=== PATIENT | male | born 1985 ===

== ENCOUNTER 2019-12-27 11:00 | Outpatient (REF) | payer BC, SELFPAY | END 2019-12-27 11:01 | disposition home or self-care (01) | LOC: HO.LAB 11:00 | PROVIDERS: Visit Provider Internal Medicine | DX: Z20.828 Contact with and (suspected) exposure to other viral communicable diseases (principal) | CPT/HCPCS: C9803; U0003 ==

== ENCOUNTER 2020-01-16 10:20 | Emergency (ER) | payer BC, SELFPAY ==
[2020-01-16 10:49] VITALS: BP 140/78; PULSE 67; RESP 16; TEMP 36.7; O2SAT 97; BMI 26.6
--- NOTE | 2020-01-16 11:05 | ED.EYEPROB ---
HPI - Eye Problem General Chief complaint: Eye Problems Stated complaint: STY LEFT EYE Time Seen by Provider: 01/16/20 11:05 Source: patient Mode of arrival: ambulatory Limitations: no limitations History of Present Illness MD chief complaint: eye pain and eye redness Onset (ago): day(s) (yesterday) Onset description: gradual Duration: constant Location: left eye Eye Symptoms: redness and other (stye with swelling) Place: home Mechanism: none Severity: mild If Pain, Quality: aching Associated symptoms: none Treatments Prior to Arrival: none Related Data Previous Rx's Medication Instructions Recorded cephalexin 500 mg PO TID 7 Days #21 cap 01/16/20 erythromycin 0.5 inch OPHTHALMIC (EYE) BID 7 01/16/20 Days #3.5 g Allergies Allergy/AdvReac Type Severity Reaction Status Date / Time mushroom Allergy Unknown SWELLING Verified 01/16/20 10:51 Review of Systems Review of Systems: Constitutional : No Fever, No Chills ENT/Mouth : No sore throat, No Rhinorrhea Eyes: No Eye Pain, pos Swelling, pos Redness Cardiovascular : No Chest Pain, No SOB Respiratory : No Cough, No Sputum Gastrointestinal : No Nausea, No Vomiting, No Diarrhea, No abdominal Pain Genitourinary : No Dysuria, No Hematuria Musculoskeletal : No joint pain, No Myalgias, No Joint Swelling Skin : No Skin Lesions, positive skin rash PMFSH Past Medical History Attestation statement: The following information was validated with the patient. Medical History No active medical problems Social History Social History (Updated 01/16/20 @ 11:11 by Bing Patterson DO) Smoking Status: Current every day smoker Advance Directives: No Advance Directives Information Provided: Yes Physical Exam Vital Signs: Vital Signs: Last Vital Signs Temp 98.0 F 01/16/20 10:49 Pulse 67 01/16/20 10:49 Resp 16 01/16/20 10:49 BP 140/78 H 01/16/20 10:49 Pulse Ox 97 01/16/20 10:49 Body Mass Index 26.6 Appearance: Alert. Oriented X3. No acute distress. Eyes: Pupils equal, round and reactive to light. L eye small stye lower lid, mild periorbital swelling and erythema no pain with EOM ENT: Pharynx normal. Neck: Normal inspection. Neck supple. CVS: Normal heart rate and rhythm. Pulses normal. Respiratory: No respiratory distress. Breath sounds normal. Abdomen: Soft and nontender. Skin: Skin warm and dry. Normal skin color. Normal skin turgor. Extremities: No lower extremity edema. No calf ttp Neuro: Oriented X 3. No motor deficit. No sensory deficit. MDM - Eye Problem MDM Narrative Medical decision making narrative: 34 yo male with no active medical problems here with L eye stye no overt abscess, no vision changes, mild erythema/swelling around orbit suggestive of cellulitis, does not wear contacts will start on eye ointment, warm compresses and oral antibiotics for cellulitis Discharge Plan Discharge Clinical Impression: Periorbital cellulitis Qualifiers: Laterality: left Qualified Code(s): L03.213 - Periorbital cellulitis Stye Qualifiers: Laterality: left Eyelid: lower Qualified Code(s): H00.015 - Hordeolum externum left lower eyelid Patient Disposition: Home, Self-Care Instructions: [place] (ED), Periorbital Cellulitis in Adults (ED) Additional Instructions: return to ED for any worsening symptoms or concerns Prescriptions: New erythromycin 5 mg/gram (0.5 %) ointment 0.5 inch ophthalmic (eye) BID 7 Days Qty: 3.5 RF: 0 cephalexin 500 mg capsule 500 mg PO TID 7 Days Qty: 21 RF: 0 Stand Alone Forms: Work/School Release
== END 2020-01-16 11:21 | disposition home or self-care (01) ==
PROVIDERS: Emergency Provider Emergency Medicine
DX: L03.213 Periorbital cellulitis (principal); H00.015 Hordeolum externum left lower eyelid
CPT/HCPCS: 99283

== ENCOUNTER 2020-04-09 06:10 | Emergency (ER) | payer BC, SELFPAY ==
[2020-04-09 06:18] VITALS: BP 132/91; PULSE 94; RESP 18; TEMP 36.7; O2SAT 99; BMI 26.6
--- NOTE | 2020-04-09 06:37 | ED_ITS ---
HPI - Skin/Abscess/Foreign Bdy General Chief complaint: Eye Problems Stated complaint: Eye swelling/?Abscess Time Seen by Provider: 04/09/20 06:22 Source: patient Mode of arrival: ambulatory History of Present Illness HPI narrative: This is a 34-year-old male who comes in with was started off looking like a small pimple at the right far lateral aspect of his right orbit approximately 2 days ago and now increasing and swelling with a swelling affecting both the upper and lower eyelid without changes in visual acuity/blurry vision/double vision. In addition, patient denies any fevers, chills and states that he has been trying warm moist compresses without success. Related Data Previous Rx's Medication Instructions Recorded cephalexin 500 mg PO TID 7 Days #21 cap 01/16/20 erythromycin 0.5 inch OPHTHALMIC (EYE) BID 7 01/16/20 Days #3.5 g amoxicillin-pot clavulanate 1 tab PO Q12H 5 Days #10 tab 04/09/20 [Augmentin] Allergies Allergy/AdvReac Type Severity Reaction Status Date / Time mushroom Allergy Unknown SWELLING Verified 01/16/20 10:51 Review of Systems Review of Systems: Pertinent positives and negatives as stated in HPI 10 point review of systems is otherwise negative. PMFSH Past Medical History Source: nursing notes reviewed Medical History No active medical problems Social History Social History Smoking Status: Smoker, status unknown Advance Directives: No Physical Exam Vital Signs: Vital Signs: Last Vital Signs Temp 98.1 F 04/09/20 06:18 Pulse 94 04/09/20 06:18 Resp 18 04/09/20 06:18 BP 132/91 H 04/09/20 06:18 Pulse Ox 99 04/09/20 06:18 Body Mass Index 26.6 VITAL SIGNS: Reviewed. GENERAL: Well developed, well nourished, in no acute distress. HEAD: Normocephalic/atraumatic, EYES: PERRLA, EOMI intact without pain, no nystagmus, small erythematous indurated area at the lateral right orbit without pustule head examined further with bedside ultrasound and no discrete collection appreciated. EARS: Ext canals without abnormality NOSE: Nares patent bilateral OROPHARYNX: no oral lesions noted, posterior pharynx clear NECK: Supple, no adenopathy LUNGS: Normal breath sounds. No adventitious sounds or accessory muscle use. SpO2<99> CARDIOVASCULAR: Regular rate and rhythm without noted murmurs ABDOMEN: Soft, non-tender, non-distended with bowel sounds. NEUROLOGIC: Alert and oriented x 4. Course Course Course Narrative: This is a 34-year-old male with history and clinical presentation consistent with redness, swelling at right lateral orbit and no identifiable collection to drain. This was discussed with the patient at bedside and he acknowledged understanding and will continue with the hot moist compresses as well as being started on antibiotics. He received the initial dose here in the emergency room and then the remaining course was sent to the pharmacy. Discharge Plan Discharge Clinical Impression: Abscess Patient Disposition: Home, Self-Care Instructions: Abscess (ED) Additional Instructions: 1. Continue with hot moist compresses to the area for the next 24-48 hours. 2. Complete the entire course of antibiotics whether not you are able to express pus after 24 hours. 3. Please follow up with the primary care provider in 2-3 days for re- evaluation. 4. Recommend using [id number] Tylenol/ibuprofen for pain control. Do not hesitate to return to the emergency room for any acute worsening of her symptoms. Prescriptions: New amoxicillin-pot clavulanate [Augmentin] 875-125 mg tablet 1 tab PO Q12H 5 Days Qty: 10 RF: 0 No Action erythromycin 5 mg/gram (0.5 %) ointment 0.5 inch ophthalmic (eye) BID 7 Days Qty: 3.5 RF: 0 cephalexin 500 mg capsule 500 mg PO TID 7 Days Qty: 21 RF: 0 Referrals: Physician,None [Primary Care Provider] - 2 days Discharge Date/Time: 04/09/20 06:49
[2020-04-09] MEDS: Amoxicillin/Potassium Clav 875 MG TABLET PO (06:44)
== END 2020-04-09 06:49 | disposition home or self-care (01) ==
LOC: HO.ED 06:41
PROVIDERS: Emergency Provider Student in an Organized Health Care Education/Training Program
DX: H44.001 Unspecified purulent endophthalmitis, right eye (principal); Z79.899 Other long term (current) drug therapy
CPT/HCPCS: 99283; 99284

== ENCOUNTER 2020-08-21 11:01 | Emergency (ER) | payer BC, SELFPAY ==
--- NOTE | ~2020-08-21 | XR_ITS ---
EXAMINATION: XR CHEST CLINICAL INFORMATION: Cough for 3 weeks. COMPARISON: None. TECHNIQUE: 2 views of the chest were obtained. FINDINGS: Minimal left basilar atelectasis. No large, confluent airspace consolidation. No pleural effusion or pneumothorax. Unremarkable cardiomediastinal silhouette. No acute osseous abnormality. XR/XR chest 2V IMPRESSION: Minimal left basilar atelectasis.
[2020-08-21 11:03] VITALS: BP 118/66; PULSE 99; RESP 16; TEMP 36.7; O2SAT 96; BMI 22.1
--- NOTE | 2020-08-21 12:19 | ED_ITS ---
HPI - General Adult General Chief complaint: Upper Respiratory Symptoms Stated complaint: fever headache Time Seen by Provider: 08/21/20 12:19 Source: patient Limitations: no limitations History of Present Illness HPI narrative: Patient presents with about a week and half to 2 weeks history of increasing cough nasal congestion slight sore throat and left-sided ear pain. Patient denies any sick contacts. Positive history of tobacco use no past medical history and takes no current medications. Patient has not been vaccinated for COVID-19 as no past history of COVID-19. Symptoms are moderate. Denies any left ear discharge. Cough is productive for green yellow sputum. Related Data Previous Rx's Medication Instructions Recorded cephalexin 500 mg PO TID 7 Days #21 cap 01/16/20 erythromycin 0.5 inch OPHTHALMIC (EYE) BID 7 01/16/20 Days #3.5 g amoxicillin-pot clavulanate 1 tab PO Q12H 5 Days #10 tab 04/09/20 [Augmentin] amoxicillin 500 mg PO TID 10 Days #30 cap 08/21/20 Allergies Allergy/AdvReac Type Severity Reaction Status Date / Time mushroom Allergy Unknown SWELLING Verified 01/16/20 10:51 Review of Systems Constitutional: Constitutional: Denies chills, Denies fatigue, Denies fever(s), Denies headache(s) and Denies weakness Eyes: Eyes: Denies blurry vision and Denies diplopia ENT: Denies facial pain, Denies headache(s) and Reports sore throat (Left- sided ear pain) Cardiovascular: Cardiovascular: Denies chest pain and Denies dyspnea Respiratory: Respiratory: Denies dyspnea Gastrointestinal: Gastrointestinal: Denies diarrhea, Denies nausea and Denies vomiting Musculoskeletal: Musculoskeletal: Reports no additional musculoskeletal complaints Neurologic: Denies headache(s) and Denies weakness Psychiatric: Psychiatric: Reports no additional psychiatric complaints Endocrine: Endocrine: Denies fatigue Allergic/Immunologic: Allergic/Immunologic: Reports no additional allergic/immunologic complaints [facility] Past Medical History Attestation statement: The following information was validated with the patient. Medical History No active medical problems Social History Social History Advance Directives: No Advance Directives Information Provided: No Physical Exam Vital Signs: Vital Signs: Last Vital Signs Temp 98.1 F 08/21/20 11:03 Pulse 99 08/21/20 11:03 Resp 16 08/21/20 11:03 BP 118/66 08/21/20 11:03 Pulse Ox 96 08/21/20 11:03 Body Mass Index 22.1 vital signs have been reviewed as normal and appeared to be correct. Blood pressure normal. Heart rate normal. Respiration rate normal. Temperature normal. Oxygen saturation normal. Appearance: Alert. Oriented X3. No acute distress. Head: Normal external exam. Normocephalic. Atraumatic. Eyes: PERRLA. EOMI. Conjunctiva and sclera normal. Eyelids normal. ENT: Throat is clear no evidence of peritonsillar abscess left ear TM is dull positive erythema Neck: Soft full range of motion CVS: Heart regular rate and rhythm no murmurs and rubs Respiratory: Breath sounds are clear to auscultation bilaterally. No accessory muscle use noted. Back: No CVA tenderness. Full range of motion noted. Skin: Skin warm and dry. Normal skin color. Extremities: No lower extremity edema. Extremities exhibit normal range of motion. Extremities nontender. Neuro: Oriented X 3. No motor deficit. No sensory deficit. Reflexes normal. Course Course Course Narrative: URI COVID-19 Pneumonia Acute bronchitis Left otitis media Pharyngitis Chest x-ray swab is pending patient has clinical signs of left otitis media at this time Frontal swabs are negative chest x-ray is normal Medical Decision Making Lab Data Labs: Lab Results 08/21/20 Range/Units 12:13 Coronavirus (PCR) NEGATIVE (Negative) Influenza Type A (PCR) NEGATIVE (Negative) Influenza Type B (PCR) NEGATIVE (Negative) RSV RNA Qual (PCR) NEGATIVE (Negative) Imaging Data Chest x-ray: Radiologist's impression: [address] [id number] ReportSigned Patient: Albino MastersMR#: [id number]: [id number]:[id number]/Sex: 35 / MADM Date: 08/21/20Loc: EDAttending Dr: Ordering Physician: Diallo Tate Date of Service: 08/21/20 Procedure(s): XR chest 2V Accession Number(s): [id number] cc: Diallo Tate ~ EXAMINATION: XR CHEST CLINICAL INFORMATION: Cough for 3 weeks. COMPARISON: None. TECHNIQUE: 2 views of the chest were obtained. FINDINGS: Minimal left basilar atelectasis. No large, confluent airspace consolidation. No pleural effusion or pneumothorax. Unremarkable cardiomediastinal silhouette. No acute osseous abnormality. XR/XR chest 2V IMPRESSION: Minimal left basilar atelectasis. Dictated By:COLLIN CARMEN MDSigned By:<Electronically signed by COLLIN CARMEN MD in OV>08/21/20 1215 DD/ 1205TD/TT: Customer Service Sales Associate: Discharge Plan Discharge Clinical Impression: Otitis media Patient Disposition: Home, Self-Care Instructions: Ear Infection (ED) Additional Instructions: COVID-19 swab and flu swab were negative You have clinical signs of a left ear infection will treat with antibiotics as this time Prescriptions: New amoxicillin 500 mg capsule 500 mg PO TID 10 Days Qty: 30 RF: 0 No Action erythromycin 5 mg/gram (0.5 %) ointment 0.5 inch ophthalmic (eye) BID 7 Days Qty: 3.5 RF: 0 cephalexin 500 mg capsule 500 mg PO TID 7 Days Qty: 21 RF: 0 amoxicillin-pot clavulanate [Augmentin] 875-125 mg tablet 1 tab PO Q12H 5 Days Qty: 10 RF: 0
[2020-08-21 12:55] LABS: Influenza A PCR NEGATIVE (Negative); Influenza B PCR NEGATIVE (Negative); Resp Syncy Virus RNA Qual PCR NEGATIVE (Negative); SARS COV2 PCR INHOUSE NEGATIVE (Negative)
[2020-08-21 13:14] VITALS: O2SAT 98
== END 2020-08-21 13:23 | disposition home or self-care (01) ==
PROVIDERS: Physician Assistant; Emergency Provider Emergency Medicine
DX: H66.92 Otitis media, unspecified, left ear (principal); R05 Cough; Z20.822 Contact with and (suspected) exposure to COVID-19
CPT/HCPCS: 0241U; 36415; 71046; 99283; 99284

== ENCOUNTER 2020-08-29 11:13 | Emergency (ER) | payer BC, SELFPAY ==
[2020-08-29 12:15] VITALS: BP 123/83; PULSE 92; RESP 16; TEMP 36.8; O2SAT 97; BMI 23.6
--- NOTE | 2020-08-29 13:14 | ED.URI ---
HPI - URI/Sore Throat General Chief Complaint: Upper Respiratory Symptoms Stated Complaint: SORE THROAT Source: patient Mode of arrival: ambulatory Limitations: no limitations History of Present Illness HPI Narrative: Patient return to the ED for continued coughing and sore throat. Patient states sore throat and coughing for 3 weeks. Patient was seen here last week 2 weeks into symptoms and had a negative chest x-ray and negative COVID swab. Patient denies any chest pain or shortness of breath. Patient denies any swelling of lower extremity or coughing up blood. Patient admits seasonal allergies MD elicited complaint: cough and sore throat Related Data Previous Rx's Medication Instructions Recorded cephalexin 500 mg PO TID 7 Days #21 cap 01/16/20 erythromycin 0.5 inch OPHTHALMIC (EYE) BID 7 01/16/20 Days #3.5 g amoxicillin-pot clavulanate 1 tab PO Q12H 5 Days #10 tab 04/09/20 [Augmentin] amoxicillin 500 mg PO TID 10 Days #30 cap 08/21/20 benzonatate [Tessalon Perles] 100 mg PO TID 5 Days #15 cap 08/29/20 cetirizine 10 mg PO DAILY PRN #10 cap 08/29/20 Allergies Allergy/AdvReac Type Severity Reaction Status Date / Time mushroom Allergy Unknown SWELLING Verified 01/16/20 10:51 Review of Systems Review of Systems: Yes all other systems are reviewed and are negative Constitutional: Constitutional: Reports as per HPI and Reports no additional constitutional complaints Eyes: Eyes: Reports as per HPI and Reports no additional eye complaints ENT: Reports system reviewed and no additional complaints, except as documented, Reports as per HPI and Reports sore throat Cardiovascular: Cardiovascular: Reports as per HPI and Reports no additional cardiovascular complaints Respiratory: Respiratory: Reports as per HPI, Reports no additional respiratory complaints and Reports cough Gastrointestinal: Gastrointestinal: Reports as per HPI and Reports no additional gastrointestinal complaints Genitourinary: Genitourinary: Reports no additional male genitourinary complaints and Reports as per HPI Musculoskeletal: Musculoskeletal: Reports no additional musculoskeletal complaints and Reports as per HPI Neurologic: Reports system reviewed and no additional complaints, except as documented and Reports as per HPI Psychiatric: Psychiatric: Reports no additional psychiatric complaints and Reports as per HPI PMFSH Past Medical History Medical History No active medical problems Social History Social History Alcohol intake: current Alcohol intake frequency: a few times a week Patient Tobacco Use Status: Current everyday Tobacco user Advance Directives: No Advance Directives Information Provided: Yes Physical Exam Vital Signs: Vital Signs: Last Vital Signs Temp 98.3 F 08/29/20 12:15 Pulse 92 08/29/20 12:15 Resp 16 08/29/20 12:15 BP 123/83 08/29/20 12:15 Pulse Ox 97 08/29/20 12:15 Body Mass Index 23.6 Const: General: cooperative, healthy appearing, comfortable, no acute distress, well developed, alert, awake and Physically active Orientation/consciousness: patient oriented x3 HENMT: Head: Yes normal to inspection, Yes No palpable skull fracture present, Yes normocephalic, Yes atraumatic and No abrasion General nose exam: Normal external nose present and Normal nares present Throat: Yes posterior oropharynx normal, Yes tonsils normal and Yes uvula midline Eyes: General: appearance normal, both eyes and all related structures Neck: Neck: Yes normal visual inspection, Yes full ROM, Yes no lymphadenopathy, Yes no meningeal signs, Yes trachea midline, Yes supple and No tender Chest: Chest palpation & inspection: normal inspection of the chest and normal palpation of entire chest wall Resp: Effort & Inspection: normal respiratory effort and able to speak in complete sentences Auscultation: clear to auscultation bilaterally Cardio: Jugular venous distension: no JVD Heart sounds: S1 normal heart sound present and S2 normal heart sound present GI: Inspection: Yes normal to inspection and No abdominal wall ecchymosis Palpation (GI): Soft to palpation, not firm, nontender, no guarding and not rigid : General: No CVA tenderness and Yes no CVA tenderness Back/Spine/Pelvis: Back: no CVA tenderness, No CVA tenderness and No back tenderness Skin: General skin exam: no rashes or lesions noted and elasticity normal Neuro: General: patient oriented x3, gait normal, no meningeal signs and CN's II-XI intact bilaterally Cranial nerves: Yes CN's II-XII intact bilaterally Extrem: General: Yes normal to inspection and Yes full ROM Psych: Appearance: grossly normal, well kempt and not disheveled Course Course Course Narrative: No need for repeat x-ray or COVID swab. Patient had them last week when he was 2 weeks into his symptoms. Will do rapid strep. Reevaluation(s) Reevaluation #1: strep test is negative. Will discharge with allergy medication & coughing medication Time: 13:21 MDM - URI/Sore Throat MDM Narrative Medical decision making narrative: Cough. Allergic cough Lab Data Labs: Lab Results 08/29/20 Range/Units 12:54 S. pyogenes GrpA KARINE Negative (Negative) Discharge Plan Discharge Clinical Impression: Cough, Allergic cough Patient Disposition: Home, Self-Care Instructions: Pharyngitis (ED), Allergic Rhinitis (ED), Acute Cough (ED) Additional Instructions: The strep test came back negative. The cough may be allergy induced. Will prescribe Cetrizine seen and Tessalon Perles to help with symptoms. Please follow-up with PCP. Return to ED for any chest pain, shortness of breath, intractable fever, swelling of lips, swelling of tongue, swelling of lower extremities, coughing up blood, shortness of breath, drooling, change in voice, sensation of throat closing, or any other concerning symptoms. Prescriptions: New cetirizine 10 mg capsule 10 mg PO DAILY PRN (Reason: cough) Qty: 10 RF: 0 benzonatate [Tessalon Perles] 100 mg capsule 100 mg PO TID 5 Days Qty: 15 RF: 0 No Action erythromycin 5 mg/gram (0.5 %) ointment 0.5 inch ophthalmic (eye) BID 7 Days Qty: 3.5 RF: 0 cephalexin 500 mg capsule 500 mg PO TID 7 Days Qty: 21 RF: 0 amoxicillin 500 mg capsule 500 mg PO TID 10 Days Qty: 30 RF: 0 amoxicillin-pot clavulanate [Augmentin] 875-125 mg tablet 1 tab PO Q12H 5 Days Qty: 10 RF: 0 Stand Alone Forms: Work/School Release Print Language: Surinamese
[2020-08-29 13:15] LABS: Strep A Nucleic Acid Negative (Negative)
== END 2020-08-29 13:40 | disposition home or self-care (01) ==
PROVIDERS: Physician Assistant; Emergency Provider Emergency Medicine Emergency Medical Services
DX: R05 Cough (principal); F17.200 Nicotine dependence, unspecified, uncomplicated; Z71.6 Tobacco abuse counseling; Z79.899 Other long term (current) drug therapy; Z20.822 Contact with and (suspected) exposure to COVID-19
CPT/HCPCS: 36415; 87651; 99283

== ENCOUNTER 2020-09-01 13:34 | Emergency (ER) | payer BC, SELFPAY ==
[2020-09-01 14:01] VITALS: BP 134/87; PULSE 100; RESP 16; TEMP 36.6; O2SAT 97; BMI 23.6
[2020-09-01 14:23] LABS: Strep A Nucleic Acid Negative (Negative)
--- NOTE | 2020-09-01 14:50 | ED_ITS ---
HPI - URI/Sore Throat General Chief Complaint: Upper Respiratory Symptoms Stated Complaint: soar throat Time Seen by Provider: 09/01/20 14:38 Source: patient Mode of arrival: ambulatory Limitations: no limitations History of Present Illness HPI Narrative: 35-year-old male here with sore throat since . Also complaining of hoarseness, fatigue. He was seen here on August 21 and diagnosed with a otitis media. He completed a course of amoxicillin. Seen here again on August 29 for sore throat. Had negative strep was treated with supportive measures for viral syndrome. Now complaining of continued sore throat. No fevers or chills or weight loss or body aches or rash. Related Data Previous Rx's Medication Instructions Recorded cephalexin 500 mg PO TID 7 Days #21 cap 01/16/20 erythromycin 0.5 inch OPHTHALMIC (EYE) BID 7 01/16/20 Days #3.5 g amoxicillin-pot clavulanate 1 tab PO Q12H 5 Days #10 tab 04/09/20 [Augmentin] amoxicillin 500 mg PO TID 10 Days #30 cap 08/21/20 benzonatate [Tessalon Perles] 100 mg PO TID 5 Days #15 cap 08/29/20 cetirizine 10 mg PO DAILY PRN #10 cap 08/29/20 azithromycin See Rx Instructions .ROUTE 09/01/20 .COMPLEX #6 tab Allergies Allergy/AdvReac Type Severity Reaction Status Date / Time mushroom Allergy Unknown SWELLING Verified 01/16/20 10:51 Review of Systems Review of Systems: Yes all other systems are reviewed and are negative Constitutional: Constitutional: Reports no additional constitutional complaints, Denies body ache(s), Denies chills, Denies fever(s), Denies headache(s) and Denies weakness Eyes: Eyes: Reports no additional eye complaints and Denies change in vision ENT: Reports system reviewed and no additional complaints, except as documented, Denies dizziness, Denies headache(s), Denies nasal congestion, Reports nasal discharge, Denies neck pain and Reports sore throat Cardiovascular: Cardiovascular: Reports no additional cardiovascular complaints, Denies chest pain, Denies leg edema and Denies dyspnea Respiratory: Respiratory: Reports no additional respiratory complaints, Denies cough and Denies dyspnea Gastrointestinal: Gastrointestinal: Reports no additional gastrointestinal complaints, Denies abdominal pain, Denies diarrhea, Denies nausea and Denies vomiting Genitourinary: Genitourinary: Denies urinary incontinence Musculoskeletal: Musculoskeletal: Reports no additional musculoskeletal complaints, Denies back pain, Denies arthralgias, Denies joint swelling, Denies neck pain, Denies numbness and Denies tingling Integumentary/Breasts: Skin/Breast: Reports system reviewed and no additional complaints, except as docu and Denies rash Neurologic: Denies Abnormal speech present, Denies dizziness, Denies headache(s), Denies numbness, Denies tingling and Denies weakness [facility] Past Medical History Attestation statement: The following information was validated with the patient. Source: old records reviewed and nursing notes reviewed Medical History No active medical problems Social History Social History Alcohol intake: current Alcohol intake frequency: a few times a week Patient Tobacco Use Status: Current everyday Tobacco user Advance Directives: Yes Advance Directives Information Provided: No Advance Directives on File: No Physical Exam Vital Signs: Vital Signs: Last Vital Signs Temp 98 F 09/01/20 14:01 Pulse 100 09/01/20 14:01 Resp 16 09/01/20 14:01 BP 134/87 09/01/20 14:01 Pulse Ox 97 09/01/20 14:01 Body Mass Index 23.6 Const: General: cooperative, healthy appearing, comfortable and no acute distress Orientation/consciousness: patient oriented x3 Limitations: no limitations HENMT: Head: Yes normal to inspection Ears: hearing grossly normal bilaterally and TM's normal bilaterally General nose exam: Normal external nose present Face and sinus: Yes normal facial exam Mouth: Normal oral and palatal mucosa present Throat: Yes posterior oropharynx normal, Yes uvula midline and Yes abnormal tonsil (Bilateral tonsillar erythema and swelling. No exudate) Eyes: General: appearance normal, both eyes and all related structures Pupils: Equal, round and reactive pupils present Neck: Neck: Yes normal visual inspection, Yes full ROM and Yes no lymphadenopathy Chest: Chest palpation & inspection: normal inspection of the chest Resp: Effort & Inspection: normal respiratory effort Auscultation: clear to auscultation bilaterally Cardio: Rate: regular rate Rhythm: regular rhythm Peripheral pulses: Peripheral pulses 2+ throughout GI: Inspection: Yes normal to inspection Palpation (GI): Soft to palpation and nontender Auscultation: normal bowel sounds Back/Spine/Pelvis: Thoracic/Lumbar Spine: thoracic and lumbar spine normal to inspection Skin: General skin exam: no rashes or lesions noted Neuro: General: patient oriented x3, no focal motor deficits and normal sensation to monofilament Cranial nerves: Yes Equal, round and reactive pupils present Cognition (Neuro): normal cognition Speech: No Abnormal speech present Gait exam (Neuro): Normal gait present Motor exam (neuro): 5/5 motor strength present throughout Extrem: General: Yes normal to inspection Course Course Course Narrative: 35-year-old male here with sore throat despite course of amoxicillin. Will check Monospot -Monospot negative. Due to persistent pain even with negative strep will treat with course of antibiotics. Reviewed worrisome signs and symptoms when to return to the emergency department. Comfortable discharge home. MDM - URI/Sore Throat Medical Records Attestation: I reviewed the patient's medical records. Lab Data Attestation: I reviewed the patient's lab results. Labs: Lab Results 09/01/20 09/01/20 Range/Units 14:07 14:46 Monoscreen Negative (Negative) S. pyogenes GrpA KARINE Negative (Negative) Discharge Plan Discharge Clinical Impression: Pharyngitis Patient Disposition: Home, Self-Care Instructions: Pharyngitis (ED) Additional Instructions: Increase fluids, rest Motrin or Tylenol for pain or fever Prescriptions: New azithromycin 250 mg tablet See Rx Instructions .ROUTE .COMPLEX Qty: 6 RF: 0 No Action erythromycin 5 mg/gram (0.5 %) ointment 0.5 inch ophthalmic (eye) BID 7 Days Qty: 3.5 RF: 0 cephalexin 500 mg capsule 500 mg PO TID 7 Days Qty: 21 RF: 0 amoxicillin 500 mg capsule 500 mg PO TID 10 Days Qty: 30 RF: 0 cetirizine 10 mg capsule 10 mg PO DAILY PRN (Reason: cough) Qty: 10 RF: 0 benzonatate [Tessalon Perles] 100 mg capsule 100 mg PO TID 5 Days Qty: 15 RF: 0 amoxicillin-pot clavulanate [Augmentin] 875-125 mg tablet 1 tab PO Q12H 5 Days Qty: 10 RF: 0 Referrals: Physician,Unknown [Primary Care Provider] - 2 days Stand Alone Forms: Work/School Release
[2020-09-01 15:10] LABS: Monotest Negative (Negative)
== END 2020-09-01 15:54 | disposition home or self-care (01) ==
PROVIDERS: Nurse Practitioner Family; Emergency Provider Emergency Medicine Emergency Medical Services
DX: J02.9 Acute pharyngitis, unspecified (principal); F17.210 Nicotine dependence, cigarettes, uncomplicated
CPT/HCPCS: 36415; 86308; 87651; 99283

== ENCOUNTER 2020-12-26 10:35 | Outpatient (REF) | payer BC, SELFPAY ==
[2020-12-26 10:55] LABS: COVID-19 Test Negative (Negative)
== END 2020-12-26 10:36 | disposition home or self-care (01) ==
LOC: HO.LAB 10:35
PROVIDERS: Visit Provider Internal Medicine
DX: Z20.822 Contact with and (suspected) exposure to COVID-19 (principal)
CPT/HCPCS: 36415; 87635; C9803

== ENCOUNTER 2021-07-11 13:05 | Emergency (ER) | payer BC, SELFPAY ==
[2021-07-11 13:07] VITALS: BP 124/84; PULSE 107; RESP 19; TEMP 36.6; O2SAT 99; BMI 25.1
--- NOTE | 2021-07-11 14:37 | ED.GENADULT ---
HPI - General Adult General Chief complaint: General Medical Stated complaint: Lump on R eye Time Seen by Provider: 07/11/21 14:37 Source: patient Mode of arrival: ambulatory Limitations: no limitations History of Present Illness HPI narrative: 36-year-old male presents to the ER for evaluation of a painful and swollen right upper eye that started 2 days ago. He reports a history of several abscesses in the past and has 1 on hit the back of his neck that popped on its own in the shower today. He denies any fever or chills. He denies any vision changes. He denies any pain with movement of the eye. He reports he noticed a small white pustule on the lateral aspect of the reddened area that started today but he did not try to drain the pus at home. He has been using warm compresses only intermittently. He denies any drainage from the eye. He is not diabetic. MD complaint: Red and swollen right upper eye area Onset (ago): day(s) (2) Location: eyes Severity: moderate Severity scale (1-10): 6 Quality: aching Pain Consistency: constant Relieving factors: none Exacerbating factors: none Associated symptoms: denies other symptoms Treatments prior to arrival: none Related Data Previous Rx's Medication Instructions Recorded cephalexin 500 mg capsule 500 mg PO TID 7 Days #21 cap 01/16/20 erythromycin 5 mg/gram (0.5 %) eye 0.5 inch OPHTHALMIC (EYE) BID 7 01/16/20 ointment Days #3.5 g amoxicillin 875 mg-potassium 1 tab PO Q12H 5 Days #10 tab 04/09/20 clavulanate 125 mg tablet (Augmentin) amoxicillin 500 mg capsule 500 mg PO TID 10 Days #30 cap 08/21/20 benzonatate 100 mg capsule 100 mg PO TID 5 Days #15 cap 08/29/20 (Tessalon Perles) cetirizine 10 mg capsule 10 mg PO DAILY PRN #10 cap 08/29/20 azithromycin 250 mg tablet See Rx Instructions .ROUTE 09/01/20 .COMPLEX #6 tab amoxicillin 875 mg-potassium 1 tab PO BID #14 tab 07/11/21 clavulanate 125 mg tablet ibuprofen 600 mg tablet 600 mg PO Q8H PRN #20 tab 07/11/21 sulfamethoxazole 800 1 tab PO Q12H #14 tab 07/11/21 mg-trimethoprim 160 mg tablet (Bactrim DS) Allergies Allergy/AdvReac Type Severity Reaction Status Date / Time mushroom Allergy Unknown SWELLING Verified 01/16/20 10:51 Review of Systems Review of Systems: Constitutional: No Fever, No Chills ENT/Mouth: No sore throat, No Rhinorrhea, No Swallowing Difficulty Eyes: + Eye Pain, + Swelling, + Redness, No vision changes, No discharge Cardiovascular: No Chest Pain, No SOB Respiratory: No Cough, No Sputum Gastrointestinal: No Nausea, No Vomiting Musculoskeletal: No joint pain, No Myalgias Skin: No Skin Lesions, No rash Neuro: No Weakness, No Numbness, No Dizziness, No Headache Heme/Lymph: No Lymphadenopathy PMFSH Past Medical History Medical History No active medical problems Social History Social History Alcohol intake: current Alcohol intake frequency: a few times a week Patient Tobacco Use Status: Current everyday Tobacco user Advance Directives: No Advance Directives Information Provided: No Physical Exam ED Vital Signs: Vital Signs - 24 hr 07/11/21 13:07 Temperature 98 F Pulse Rate 107 H Respiratory Rate 19 Blood Pressure 124/84 Pulse Oximetry 99 BMI result Body Mass Index 25.1 Appearance: Alert. Oriented X3. No acute distress. HEENT: Right upper eyelid and periorbital area with moderate swelling and erythema, there is a small white pustule laterally and small area of fluctuance, mild induration. Pupils are equal round and reactive to light extraocular muscles are intact. Sclera is normal bilaterally. CVS: Normal heart rate and rhythm. Pulses normal. Respiratory: No respiratory distress. Skin: Skin warm and dry. Normal skin color. Normal skin turgor. No rashes. Extremities: normal inspection x4. Neuro: Oriented X 3. Grossly normal, nonfocal Course Course Course Narrative: 36-year-old male presents to the ER with right upper thigh redness and swelling for the last 2 days. Examination is consistent with cellulitis and early abscess formation. He tolerated do armando and drainage. Warm compress applied. Could be early periorbital cellulitis so will start on broad coverage with Bactrim and Augmentin. He was instructed to follow-up with his PCP early next week for re-evaluation and come back to the ER if he has any worsening or no improvement in his symptoms with antibiotics. He expressed understanding and is stable for discharge home. Procedures Abscess I/D Site: face Side (if applicable): right Technique: needle aspiration Irrigation: Yes Packing used?: none Complications: pain Critical Care Time Critical Care Time Critical Care Time: No Discharge Plan Discharge Clinical Impression: Abscess, Cellulitis Patient Disposition: Home, Self-Care Instructions: Cellulitis (DC), Abscess (ED) Additional Instructions: Use warm compresses on your eye several times per day. Take the prescribed antibiotics as directed - complete the entire course If you have worsening redness, pain, swelling or any other concerning symptoms call your doctor or come back to the ER right away for further evaluation. Prescriptions: New sulfamethoxazole-trimethoprim [Bactrim DS] 800-160 mg tablet 1 tab PO Q12H Qty: 14 0RF amoxicillin-pot clavulanate 875-125 mg tablet 1 tab PO BID Qty: 14 0RF ibuprofen 600 mg tablet 600 mg PO Q8H PRN (Reason: pain) Qty: 20 0RF No Action erythromycin 5 mg/gram (0.5 %) ointment 0.5 inch ophthalmic (eye) BID 7 Days Qty: 3.5 0RF cephalexin 500 mg capsule 500 mg PO TID 7 Days Qty: 21 0RF amoxicillin 500 mg capsule 500 mg PO TID 10 Days Qty: 30 0RF cetirizine 10 mg capsule 10 mg PO DAILY PRN (Reason: cough) Qty: 10 0RF benzonatate [Tessalon Perles] 100 mg capsule 100 mg PO TID 5 Days Qty: 15 0RF azithromycin 250 mg tablet See Rx Instructions .ROUTE .COMPLEX Qty: 6 0RF Rx Instructions: take 500 mg today (day 1), then 250 mg for 4 days (days 2-5) amoxicillin-pot clavulanate [Augmentin] 875-125 mg tablet 1 tab PO Q12H 5 Days Qty: 10 0RF Interventions: ED Discharge Assessment Last Done: 07/11/21 15:16 Discharge Date/Time: 07/11/21 15:17
== END 2021-07-11 15:17 | disposition home or self-care (01) ==
PROVIDERS: Emergency Provider Student in an Organized Health Care Education/Training Program
DX: H00.031 Abscess of right upper eyelid (principal); H57.11 Ocular pain, right eye; F17.200 Nicotine dependence, unspecified, uncomplicated
CPT/HCPCS: 10160; 99283; 99284

== ENCOUNTER 2021-07-13 11:39 | Emergency (ER) | payer BC, SELFPAY ==
--- NOTE | ~2021-07-13 | US_ITS ---
EXAMINATION: US SOFT TISSUE head and neck. CLINICAL INFORMATION: Swelling right upper eyelid. COMPARISON: None TECHNIQUE: Limited ultrasound of the right upper eyelid was performed FINDINGS: There is a heterogeneous complex lesion along the right upper eyelid measuring 1.5 x 2.2 x 0.8 cm. In has internal vascularity. US/US soft tiss head and/or neck IMPRESSION: Complex cyst or mass right upper eyelid with internal vascular flow. Correlate with ophthalmology..
[2021-07-13 11:45] VITALS: BP 142/82; PULSE 100; RESP 20; TEMP 36.6; O2SAT 96; BMI 25.1
--- NOTE | 2021-07-13 12:25 | ED_ITS ---
HPI - Eye Problem General Chief complaint: Eye Problems Stated complaint: R EYE INJ Time Seen by Provider: 07/13/21 12:12 Source: patient Mode of arrival: ambulatory Limitations: no limitations History of Present Illness HPI Narrative: 36-year-old male who denies any medical history presenting to the ED with compla ints of a pimple/ abscess to the right upper eyelid outer aspect that started on 07/09/2021 then he was seen here on 07/11/2021 and had an I&D of the pimple/ abscess placed on Augmentin and Bactrim taking as prescribed and he reports he was also using warm compresses multiple times a day and he feels like his symptoms are just worsening. He reports his eyelid are swollen and completely shut although when he tries to open his eyelids with his hands he is able to see clearly and does not have pain when he looks around. He denies any fevers, history of MRSA, insect bites, chills, changes in vision if he opens up his eyelids or any other symptoms complaints or concerns at this time. Picture below is what he reports his eye looked like when he 1st came here on 07/11/2021. chief complaint: other (right eyelid swelling ) Onset (ago): day(s) (4) Onset description: gradual Duration: constant and progressively worsening Location: right eye (eyelid) Severity: severe If Pain, Quality: aching Context: other ( Had an abscess that provider attempted at I&D on 07/11/2021) Associated symptoms: none Treatments Prior to Arrival: other ( warm compresses and taking Bactrim and Augmentin as prescribed since 07/11/2021) Related Data Previous Rx's Medication Instructions Recorded cephalexin 500 mg capsule 500 mg PO TID 7 Days #21 cap 01/16/20 erythromycin 5 mg/gram (0.5 %) eye 0.5 inch OPHTHALMIC (EYE) BID 7 01/16/20 ointment Days #3.5 g amoxicillin 875 mg-potassium 1 tab PO Q12H 5 Days #10 tab 04/09/20 clavulanate 125 mg tablet (Augmentin) amoxicillin 500 mg capsule 500 mg PO TID 10 Days #30 cap 08/21/20 benzonatate 100 mg capsule 100 mg PO TID 5 Days #15 cap 08/29/20 (Tessalon Perles) cetirizine 10 mg capsule 10 mg PO DAILY PRN #10 cap 08/29/20 azithromycin 250 mg tablet See Rx Instructions .ROUTE 09/01/20 .COMPLEX #6 tab amoxicillin 875 mg-potassium 1 tab PO BID #14 tab 07/11/21 clavulanate 125 mg tablet ibuprofen 600 mg tablet 600 mg PO Q8H PRN #20 tab 07/11/21 sulfamethoxazole 800 1 tab PO Q12H #14 tab 07/11/21 mg-trimethoprim 160 mg tablet (Bactrim DS) acetaminophen 500 mg tablet 1,000 mg PO QID PRN #14 tab 07/13/21 (Tylenol Extra Strength) ibuprofen 800 mg tablet 800 mg PO Q8H PRN #14 tab 07/13/21 oxycodone 5 mg tablet 5 mg PO Q6H PRN #14 tab 07/13/21 Allergies Allergy/AdvReac Type Severity Reaction Status Date / Time mushroom Allergy Unknown SWELLING Verified 01/16/20 10:51 Review of Systems Review of Systems: Constitutional : No fevers, no chills, No changes in activity, No lethargy, No recent prior head injury, No agitation, No increased fussiness ENT/Mouth : No Ear Pain, No Nasal discharge/drainage Eyes: + Right upper eyelid pain/swelling /redness /drainage, No Vision changes/blurry/decreased vision when his eyelid is opened, No Eye Pain, No Foreign Body, No Photophobia, no itching, no contact lens uses, no recent welding, no bleeding Cardiovascular : No Chest Pain, No SOB Respiratory : No Cough Gastrointestinal : No Nausea, No Vomiting, No abdominal Pain Genitourinary : No Dysuria, No Urinary Frequency, No Urinary Incontinence, No Urgency, No Flank Pain Musculoskeletal : No joint pain, No neck stiffness, No back pain/injury Skin : No lacerations Neuro : No unsteady gait, No Paresthesias, No Loss of Consciousness, No altered mental status, No dizziness, No Headache Denies past medical history of HIV, recent trauma, coagulopathy, recent spinal/ epidural procedure, new medication, URI symptoms, close contacts with similar symptoms, tick bite, or known CO2 exposure. Yes all other systems are reviewed and are negative PMFSH Past Medical History Attestation statement: The following information was validated with the patient. Medical History No active medical problems Social History Social History Alcohol intake: current Alcohol intake frequency: a few times a week Patient Tobacco Use Status: Current everyday Tobacco user Advance Directives: No Advance Directives Information Provided: No Physical Exam Vital Signs: Vital Signs: Last Vital Signs Temp 98 F 07/13/21 11:45 Pulse 80 07/13/21 14:40 Resp 16 07/13/21 14:40 BP 126/79 07/13/21 14:40 Pulse Ox 97 07/13/21 14:40 BMI result Body Mass Index 25.1 vital signs have been reviewed as normal and appeared to be correct. Blood pressure 142/82. Heart rate normal. Respiration rate normal. Temperature normal. Oxygen saturation normal. Appearance: Alert. Oriented X3. No acute distress. Head: Normal external exam. Normocephalic. Atraumatic. No Garcia signs noted. No raccoon eyes noted Eyes: PERRLA. EOMI. Conjunctiva are normal. Cornea are normal. Funduscopic exam within normal limits. Sclera normal. right upper eyelid with moderate soft tissue swelling/ tenderness palpation/induration questioning possible abscess. When I opened the patient's eyelids myself he denies any pain with extraocular movements and he reports that his vision is normal. Left eyelids within normal limits. No papilledema noted. Anterior chamber normal. No photophobia noted. ENT: EAC normal. TM's Normal. Pharynx normal. Uvula midline. Moist mucous membranes. Neck: Normal inspection. Neck supple. FROM. No adenopathy. Thyroid Normal. No meningeal signs. No neck mass noted. CVS: Normal heart rate and rhythm. Heart sound normal. No murmurs noted. Pulses normal throughout. Respiratory: No respiratory distress. Painless inspiration. Breath sounds normal. Back: Full range of motion noted. Skin: Skin warm and dry. Normal skin color. Normal skin turgor. No rashes/lesions/lacerations noted. Extremities: Extremities exhibit normal range of motion. Extremities nontender. Neuro: Oriented X 3. No motor deficit. No sensory deficit. Reflexes normal. Course Course Course Narrative: 12:45pm - 36-year-old male who denies any medical history presenting to the ED with complaints of a pimple/ abscess to the right upper eyelid outer aspect that started on 07/09/2021 then he was seen here on 07/11/2021 and had an I&D of the pimple/ abscess placed on Augmentin and Bactrim taking as prescribed and he reports he was also using warm compresses multiple times a day and he feels like his symptoms are just worsening. He reports his eyelid are swollen and completely shut although when he tries to open his eyelids with his hands he is able to see clearly and does not have pain when he looks around. Will obtain labs, blood cultures, lactic acid, ultrasound to evaluate for possible abscess. I do not believe this is orbital cellulitis as patient does not have pain with extraocular movements and his vision is normal it appears that it is strictly to his right upper eyelid. Will also provide IV antibiotics , IV fluids, 5 mg of oxycodone an 800 mg of Motrin and re-evaluate. Reevaluation(s) Reevaluation #1: - labs reviewed and patient with mild baseline anemia similar compared to prior. ESR 61. Anion gap 11. BUN 8. CRP 2.93. Otherwise all other labs are within normal limits. - Awaiting soft tissue ultrasound of the right eyelid to evaluate for possible abscess versus cellulitis. - Plan will be to admit for preseptal cellulitis not consistent with orbital cellulitis as patient has no visual changes and when you open up his eyelids he does not have pain on extraocular movement. Time: 15:13 Reevaluation #2: - soft tissue ultrasound of right upper eyelid revealed complexes of mass right upper eyelid with internal vascular flow. They recommended to correlate with Ophthalmology and have it drained by Ophthalmology. Therefore I had discussed this patient with Dr. Weston [employer] and I sent him pictures to his cellphone and he reported that this is a localized abscess/ granuloma and that he does not need a CT scan because this is not orbital cellulitis he agrees with my diagnosis/assessment. He reports that patient should continue on the Augmentin /Bactrim and he should at least do this for a week and he can follow up with him as an outpatient basis although he reports he does not need to be admitted at this time. Therefore will DC home with symptomatic treatment instructions to continue taking the Augmentin /Bactrim as prescribed and to call Dr. Weston within a week for follow-up appointment. Patient understands agrees with this plan. Time: 16:05 MDM - Eye Problem Medical Records Attestation: I reviewed the patient's medical records. Lab Data Attestation: I reviewed the patient's lab results. Result diagrams: 07/13/21 12:34 07/13/21 12:34 Labs: Lab Results 07/13/21 07/13/21 07/13/21 Range/Units 12:34 12:34 12:34 WBC 4.8 (4.8-10.8) X10*3/uL RBC 4.25 L (4.60-5.80) X10*6/uL Hgb 13.9 L (14.0-18.0) g/dl Hct 43.0 (42.0-52.0) % MCV 101.2 H (80.0-98.0) fL MCH 32.7 (27.0-33.0) pg MCHC 32.3 (31.0-36.0) g/dl RDW 14.3 (11.0-16.0) % Plt Count 236 (160-400) X10*3/uL MPV 10.2 (9.4-12.4) fL Immature Gran % (Auto) 0.6 H (0.0-0.4) % Neut % (Auto) 60.0 (45-73) % Lymph % (Auto) 19.2 L (20-40) % [place] % (Auto) 15.4 H (2-11) % Eos % (Auto) 4.2 H (0-4) % Baso % (Auto) 0.6 (0-2) % Lymph # (Auto) 0.9 L (1.2-4.9) X10*3/uL [place] # (Auto) 0.7 (0.1-1.2) X10*3/uL Eos # (Auto) 0.2 (0.0-0.4) X10*3/uL Baso # (Auto) 0.0 (0.0-0.2) X10*3/uL Abs Immat Gran (auto) 0.03 (0.00-0.03) X10*3/uL Absolute Neuts (auto) 2.9 (2.0-8.3) x10*3/uL Absolute Nucleated RBC 0.000 (0.0-0.012) X10*3/uL Nucleated RBC % (auto) 0.0 (0.0-0.2) /100WBC ESR 61 H (0-15) MM/HR PT 11.7 (9.9-13.0) SEC INR 1.0 (0.9-1.1) Sodium (135-145) mmol/L Potassium (3.3-5.1) mmol/L Chloride (96-108) mmol/L Carbon Dioxide (22-29) mmol/L Anion Gap (12-20) BUN (9-16) mg/dL Creatinine (0.5-1.4) mg/dL Estim Creat Clear Calc Estimated GFR Random Glucose (60-115) mg/dL Lactic Acid (0.5-2.0) mmol/L Calcium (8.4-10.2) mg/dL Magnesium (1.6-2.6) mg/dL Total Bilirubin (0.0-1.0) mg/dL AST (5-37) U/L ALT (0-40) U/L Alkaline Phosphatase (39-117) U/L C-Reactive Protein (< or = 0.50) mg/dL Total Protein (6.5-8.0) g/dL Albumin (3.5-5.0) g/dL COVID-19 ([facility]) (Negative) COVID-19 Clin Com 07/13/21 07/13/21 07/13/21 Range/Units 12:34 12:34 15:17 WBC (4.8-10.8) X10*3/uL RBC (4.60-5.80) X10*6/uL Hgb (14.0-18.0) g/dl Hct (42.0-52.0) % MCV (80.0-98.0) fL MCH (27.0-33.0) pg MCHC (31.0-36.0) g/dl RDW (11.0-16.0) % Plt Count (160-400) X10*3/uL MPV (9.4-12.4) fL Immature Gran % (Auto) (0.0-0.4) % Neut % (Auto) (45-73) % Lymph % (Auto) (20-40) % [place] % (Auto) (2-11) % Eos % (Auto) (0-4) % Baso % (Auto) (0-2) % Lymph # (Auto) (1.2-4.9) X10*3/uL [place] # (Auto) (0.1-1.2) X10*3/uL Eos # (Auto) (0.0-0.4) X10*3/uL Baso # (Auto) (0.0-0.2) X10*3/uL Abs Immat Gran (auto) (0.00-0.03) X10*3/uL Absolute Neuts (auto) (2.0-8.3) x10*3/uL Absolute Nucleated RBC (0.0-0.012) X10*3/uL Nucleated RBC % (auto) (0.0-0.2) /100WBC ESR (0-15) MM/HR PT (9.9-13.0) SEC INR (0.9-1.1) Sodium 136 (135-145) mmol/L Potassium 4.6 (3.3-5.1) mmol/L Chloride 106 (96-108) mmol/L Carbon Dioxide 24 (22-29) mmol/L Anion Gap 11 L (12-20) BUN 8 L (9-16) mg/dL Creatinine 0.90 (0.5-1.4) mg/dL Estim Creat Clear Calc 112.3 Estimated GFR > 60 Random Glucose 102 (60-115) mg/dL Lactic Acid 0.8 (0.5-2.0) mmol/L Calcium 8.8 (8.4-10.2) mg/dL Magnesium 1.9 (1.6-2.6) mg/dL Total Bilirubin 0.3 (0.0-1.0) mg/dL AST 24 (5-37) U/L ALT 24 (0-40) U/L Alkaline Phosphatase 111 (39-117) U/L C-Reactive Protein 2.93 H (< or = 0.50) mg/dL Total Protein 8.6 H (6.5-8.0) g/dL Albumin 3.5 (3.5-5.0) g/dL COVID-19 ([facility]) Negative (Negative) COVID-19 Clin Com See Note Critical Care Time Critical Care Time Critical Care Time: Yes Total Critical Care Time: 60 Attestation: I personally attest to this time spent taking care of the patient Discharge Plan Discharge Clinical Impression: Periorbital cellulitis Patient Disposition: Home, Self-Care Instructions: Abscess (ED), Periorbital Cellulitis in Adults (ED) Additional Instructions: Continue your previously prescribed medications as prescribed. If you develop any worsening swelling you are unable to see or if you open your eyelids and you have pain with movement of your eyes to the right/left up and down then you need to return immediately. 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 Weston his number is below. Prescriptions: New ibuprofen 800 mg tablet 800 mg PO Q8H PRN (Reason: pain) Qty: 14 0RF acetaminophen [Tylenol Extra Strength] 500 mg tablet 1,000 mg PO QID PRN (Reason: fever or pain) Qty: 14 0RF oxycodone 5 mg tablet 5 mg PO Q6H PRN (Reason: pain) Qty: 14 0RF No Action erythromycin 5 mg/gram (0.5 %) ointment 0.5 inch ophthalmic (eye) BID 7 Days Qty: 3.5 0RF cephalexin 500 mg capsule 500 mg PO TID 7 Days Qty: 21 0RF amoxicillin 500 mg capsule 500 mg PO TID 10 Days Qty: 30 0RF cetirizine 10 mg capsule 10 mg PO DAILY PRN (Reason: cough) Qty: 10 0RF benzonatate [Tessalon Perles] 100 mg capsule 100 mg PO TID 5 Days Qty: 15 0RF azithromycin 250 mg tablet See Rx Instructions .ROUTE .COMPLEX Qty: 6 0RF Rx Instructions: take 500 mg today (day 1), then 250 mg for 4 days (days 2-5) amoxicillin-pot clavulanate [Augmentin] 875-125 mg tablet 1 tab PO Q12H 5 Days Qty: 10 0RF sulfamethoxazole-trimethoprim [Bactrim DS] 800-160 mg tablet 1 tab PO Q12H Qty: 14 0RF amoxicillin-pot clavulanate 875-125 mg tablet 1 tab PO BID Qty: 14 0RF ibuprofen 600 mg tablet 600 mg PO Q8H PRN (Reason: pain) Qty: 20 0RF Referrals: Nehemias Weston [Physician] - 1 week ( Call tomorrow to make a follow-up appointment within 1 week) Stand Alone Forms: Work/School Release
[2021-07-13 12:48] LABS: MANUAL DIFF FLAG NO
[2021-07-13 12:49] LABS: Basophils Percent Auto 0.6 % (0-2); Eosinophils Absolute Auto 0.2 X10*3/uL (0.0-0.4); Eosinophils Percent Auto 4.2 % (0-4); Hemoglobin 13.9 g/dl (14.0-18.0); Imm Gran Abs Auto 0.03 X10*3/uL (0.00-0.03); Imm Gran Pct Auto 0.6 % (0.0-0.4); Lymphocytes Absolute Auto 0.9 X10*3/uL (1.2-4.9); Lymphocytes Percent Auto 19.2 % (20-40); Mean Corpuscular HGB Conc 32.3 g/dl (31.0-36.0); Mean Corpuscular Hemoglobin 32.7 pg (27.0-33.0); Mean Corpuscular Volume 101.2 fL (80.0-98.0); Mean Platelet Volume 10.2 fL (9.4-12.4); Monocytes Absolute Auto 0.7 X10*3/uL (0.1-1.2); Monocytes Percent Auto 15.4 % (2-11); Neutrophils Absolute Auto 2.9 x10*3/uL (2.0-8.3); Platelet Count 236 X10*3/uL (160-400); Red Blood Count 4.25 X10*6/uL (4.60-5.80); Red Cell Distribution Width 14.3 % (11.0-16.0); White Blood Count 4.8 X10*3/uL (4.8-10.8)
[2021-07-13 12:54] LABS: Prothrombin Time 11.7 SEC (9.9-13.0)
[2021-07-13 12:58] LABS: Lactic Acid 0.8 mmol/L (0.5-2.0)
[2021-07-13] MEDS: 0.9 % Sodium Chloride 1,000 ML 999 ML IVCONT (13:00)
[2021-07-13 13:03] LABS: Alanine Aminotransferase 24 U/L (0-40); Albumin Level 3.5 g/dL (3.5-5.0); Alkaline Phosphatase 111 U/L (39-117); Anion Gap 11 (12-20); Aspartate Amino Transferase 24 U/L (5-37); Bilirubin Total 0.3 mg/dL (0.0-1.0); Blood Urea Nitrogen 8 mg/dL (9-16); C Reactive Protein 2.93 mg/dL (< or = 0.50); Calcium 8.8 mg/dL (8.4-10.2); Carbon Dioxide 24 mmol/L (22-29); Chloride 106 mmol/L (96-108); Creatinine Clr Calc Pharmacy 112.3; Estimated Glomerular Filt Rate > 60; Glucose Random 102 mg/dL (60-115); Magnesium 1.9 mg/dL (1.6-2.6); Potassium 4.6 mmol/L (3.3-5.1); Sodium 136 mmol/L (135-145); Total Protein 8.6 g/dL (6.5-8.0)
[2021-07-13 13:23] LABS: Erythrocyte Sedimentation Rate 61 MM/HR (0-15)
[2021-07-13] MEDS: cefTRIAXone sodium 1 GM in 0.9 % Sodium Chloride 50 ML IV (14:20)
[2021-07-13] MEDS: oxyCODONE HCl Immed Release 5 MG TABLET PO (14:21)
[2021-07-13] MEDS: Ibuprofen 800 MG TABLET PO (14:23)
[2021-07-13 14:40] VITALS: BP 126/79; PULSE 80; RESP 16; O2SAT 97
[2021-07-13 15:47] LABS: COVID-19 Test Negative (Negative)
[2021-07-13] MEDS: Amoxicillin/Potassium Clav 875 MG TABLET PO (16:27)
[2021-07-13] MEDS: Sulfamethox/Trimeth 800/160 TABLET 1 TAB PO (16:27)
== END 2021-07-13 16:33 | disposition home or self-care (01) ==
PROVIDERS: Physician Assistant Medical; Emergency Provider Student in an Organized Health Care Education/Training Program
DX: L03.213 Periorbital cellulitis (principal); H57.11 Ocular pain, right eye; Z20.822 Contact with and (suspected) exposure to COVID-19
CPT/HCPCS: 36415; 76536; 80053; 83605; 83735; 85025; 85610; 85652; 86140; 87040; 87635; 96361; 96365; 99284; J0696

== ENCOUNTER 2021-10-29 17:28 | Emergency (ER) | payer SELFPAY ==
--- NOTE | 2021-10-29 18:32 | PC.NURSE ---
called x 3 to triage both in [facility] and outside. No answer. Presumed [facility]
== END 2021-10-29 19:11 | disposition left against medical advice (07) ==
PROVIDERS: Emergency Provider Emergency Medicine
DX: M79.602 Pain in left arm (principal)

== ENCOUNTER 2022-06-21 16:48 | Emergency (ER) | payer SELFPAY ==
--- NOTE | 2022-06-21 16:58 | ED.EYEPROB ---
HPI - Eye Problem General Chief complaint: Eye Problems <Adelina Swanson NP - Last Filed: 06/21/22 17:00> Stated complaint: right eye swelling <Adelina Swanson NP - Last Filed: 06/21/22 17:00> Time Seen by Provider: 06/21/22 18:07 <Adelina Swanson NP - Last Filed: 06/21/22 17:00> Source: patient <ZOHAIB Suero - Last Filed: 06/21/22 18:36> Mode of arrival: ambulatory <ZOHAIB Suero - Last Filed: 06/21/22 18:36> Limitations: no limitations <ZOHAIB Suero Last Filed: 06/21/22 18:36> History of Present Illness HPI Narrative: Patient is a 37 year old assigned male at with no reported medical history presenting to the emergency department today with right eye pain. Patient states that on 06/18/2022 he was at work when something hit his right eye. Patient states that he immediately rinsed his eye and pulled a piece of fiber out of it. Patient states that ever since, his eye has still felt like something was in it and this morning he woke up with swelling to his bottom eye lid. Patient denies any dizziness, lightheadedness, abdominal pain, nausea, vomiting, fever, chills, blurry vision, double vision, loss of vision, chest pain, difficulty breathing, shortness of breath, back pain, night sweats, pain with urination, increased urinary frequency, increased urinary urgency, blood in his urine or stool, syncope or a near syncopal episode, recent trauma or falls, bowel incontinence, bladder incontinence, bowel retention, bladder retention, or any other complaints at this time. <ZOHAIB Suero - Last Filed: 06/21/22 18:36> MD chief complaint: eye pain and eye injury <ZOHAIB Suero - Last Filed: 06/21/22 18:36> Onset (ago): day(s) (3) <ZOHAIB Suero Last Filed: 06/21/22 18:36> Location: right eye <ZOHAIB Suero Last Filed: 06/21/22 18:36> Mechanism: direct trauma <ZOHAIB Suero - Last Filed: 06/21/22 18:36> Severity: mild <ZOHAIB Suero - Last Filed: 06/21/22 18:36> Associated symptoms: none <ZOHAIB Suero - Last Filed: 06/21/22 18:36> Treatments Prior to Arrival: none <ZOHAIB Suero - Last Filed: 06/21/22 18:36> Related Data Home medications: Previous Rx's Medication Instructions Recorded cephalexin 500 mg capsule 500 mg PO TID 7 days #21 caps 01/16/20 erythromycin 5 mg/gram (0.5 %) eye 0.5 inch ophthalmic (eye) BID 7 01/16/20 ointment days #3.5 grams amoxicillin 875 mg-potassium 1 tab PO Q12H 5 days #10 tabs 04/09/20 clavulanate 125 mg tablet (Augmentin) amoxicillin 500 mg capsule 500 mg PO TID 10 days #30 caps 08/21/20 benzonatate 100 mg capsule 100 mg PO TID 5 days #15 caps 08/29/20 (Tessalon Bety) cetirizine 10 mg capsule 10 mg PO DAILY PRN cough #10 caps 08/29/20 azithromycin 250 mg tablet See Rx Instructions PO .COMPLEX #6 09/01/20 tabs amoxicillin 875 mg-potassium 1 tab PO BID #14 tabs 07/11/21 clavulanate 125 mg tablet ibuprofen 600 mg tablet 600 mg PO Q8H PRN pain #20 tabs 07/11/21 sulfamethoxazole 800 1 tab PO Q12H #14 tabs 07/11/21 mg-trimethoprim 160 mg tablet (Bactrim DS) acetaminophen 500 mg tablet 1,000 mg PO QID PRN fever or pain 07/13/21 (Tylenol Extra Strength) #14 tabs ibuprofen 800 mg tablet 800 mg PO Q8H PRN pain #14 tabs 07/13/21 oxycodone 5 mg tablet 5 mg PO Q6H PRN pain #14 tabs 07/13/21 clindamycin HCl 300 mg capsule 300 mg PO TID 7 days #21 caps 06/21/22 erythromycin 5 mg/gram (0.5 %) eye 0.5 inch ophthalmic (eye) Q4H #3.5 06/21/22 ointment grams <Adelina Swanson NP - Last Filed: 06/21/22 17:00> Allergies/adverse reactions: Allergies Allergy/AdvReac Type Severity Reaction Status Date / Time mushroom Allergy Unknown SWELLING Verified 06/21/22 16:58 <Adelina Swanson NP - Last Filed: 06/21/22 17:00> Review of Systems Constitutional: Constitutional: Reports no additional constitutional complaints, Denies chills, Denies fever(s) and Denies night sweats <ZOHAIB Suero - Last Filed: 06/21/22 18:36> Eyes: Eyes: Reports no additional eye complaints, Denies blurry vision, Denies change in vision, Denies diplopia, Denies eye discharge, Reports irritation, Denies loss of vision and Reports eye pain <ZOHAIB Suero - Last Filed: 06/21/22 18:36> ENT: Denies dizziness <ZOHAIB Suero - Last Filed: 06/21/22 18:36> Cardiovascular: Cardiovascular: Reports no additional cardiovascular complaints, Denies chest pain, Denies lightheadedness, Denies Loss of Consciousness and Denies dyspnea <ZOHAIB Suero - Last Filed: 06/21/22 18:36> Respiratory: Respiratory: Reports no additional respiratory complaints and Denies dyspnea <ZOHAIB Suero - Last Filed: 06/21/22 18:36> Gastrointestinal: Gastrointestinal: Reports no additional gastrointestinal complaints, Denies abdominal pain, Denies melena, Denies hematochezia, Denies change in bowel habits and Denies change in stool character <ZOHAIB Suero - Last Filed: 06/21/22 18:36> Genitourinary: Genitourinary: Reports no additional male genitourinary complaints, Denies hematuria, Denies oliguria, Denies difficulty urinating, Denies dysuria, Denies urinary frequency, Denies urinary hesitancy, Denies urinary incontinence and Denies urinary urgency <ZOHAIB Suero Last Filed: 06/21/22 18:36> Musculoskeletal: Musculoskeletal: Reports no additional musculoskeletal complaints, Denies numbness and Denies tingling <ZOHAIB Suero Last Filed: 06/21/22 18:36> Neurologic: Denies dizziness, Denies loss of vision, Denies numbness and Denies tingling <ZOHAIB Suero - Last Filed: 06/21/22 18:36> Psychiatric: Psychiatric: Reports no additional psychiatric complaints <ZOHAIB Suero - Last Filed: 06/21/22 18:36> Endocrine: Endocrine: Reports no additional endocrine complaints <ZOHAIB Suero - Last Filed: 06/21/22 18:36> Hematologic/Lymphatic: Hematologic/Lymphatic: Reports no additional hematologic/lymphatic complaints <ZOHAIB Suero - Last Filed: 06/21/22 18:36> Allergic/Immunologic: Allergic/Immunologic: Reports no additional allergic/immunologic complaints <ZOHAIB Suero - Last Filed: 06/21/22 18:36> [facility] Past Medical History Attestation statement: The following information was validated with the patient. <ZOHAIB Suero - Last Filed: 06/21/22 18:36> Source: old records reviewed and nursing notes reviewed <ZOHAIB Suero - Last Filed: 06/21/22 18:36> Medical History: Medical History No active medical problems <Adelina Swanson NP - Last Filed: 06/21/22 17:00> Social History Social History: Social History Alcohol intake: current Alcohol intake frequency: a few times a week Patient Tobacco Use Status: Current everyday Tobacco user Advance Directives: No Advance Directives Information Provided: No <Adelina Swanson NP - Last Filed: 06/21/22 17:00> Physical Exam Vital Signs: Vital Signs: Last Vital Signs Temp 98.2 F 06/21/22 16:59 Pulse 124 H 06/21/22 16:59 Resp 18 06/21/22 16:59 BP 126/93 H 06/21/22 16:59 Pulse Ox 96 06/21/22 16:59 O2 Del Method Room Air 06/21/22 16:59 BMI result Body Mass Index 26.8 <Adelina Swanson NP - Last Filed: 06/21/22 17:00> Vital Signs: Last Vital Signs Temp 98.2 F 06/21/22 16:59 Pulse 124 H 06/21/22 16:59 Resp 18 06/21/22 16:59 BP 126/93 H 06/21/22 16:59 Pulse Ox 96 06/21/22 16:59 O2 Del Method Room Air 06/21/22 16:59 BMI result Body Mass Index 26.8 <ZOHAIB Suero Last Filed: 06/21/22 18:36> Const: General: cooperative, no acute distress, alert and awake <ZOHAIB Suero Last Filed: 06/21/22 18:36> Nutritional Appearance: well nourished <ZOHAIB Suero Last Filed: 06/21/22 18:36> Orientation/consciousness: patient oriented x3 <ZOHAIB Suero - Last Filed: 06/21/22 18:36> Limitations: no limitations <ZOHAIB Suero Last Filed: 06/21/22 18:36> HEENT: Head: Yes normal to inspection and Yes atraumatic <ZOHAIB Suero - Last Filed: 06/21/22 18:36> Ears: hearing grossly normal bilaterally and external ears normal <ZOHAIB Suero - Last Filed: 06/21/22 18:36> General nose exam: Normal external nose present, no nasal discharge noted and no epistaxis <ZOHAIB Suero Last Filed: 06/21/22 18:36> Face and sinus: Yes normal facial exam, No abrasion and No laceration <ZOHAIB Suero Last Filed: 06/21/22 18:36> Mouth: Normal oral and palatal mucosa present, no drooling and no muffled voice <ZOHAIB Suero - Last Filed: 06/21/22 18:36> Eyes: Eyelids: Yes other (right lower lid mildly swollen and erythematous) <ZOHAIB Suero - Last Filed: 06/21/22 18:36> Conjunctivae: conjunctivae normal <ZOHAIB Suero - Last Filed: 06/21/22 18:36> Corneas: corneas abnormal on the right fluorescein used and abrasion linear <ZOHAIB Suero Last Filed: 06/21/22 18:36> Pupils: Equal, round and reactive pupils present <Tiff Poe PA - Last Filed: 06/21/22 18:36> EOM: EOMs intact bilaterally <Tiff Poe PA - Last Filed: 06/21/22 18:36> Neck: Neck: Yes normal visual inspection, Yes full ROM and Yes no lymphadenopathy <Tiff Poe PA - Last Filed: 06/21/22 18:36> Chest: Chest palpation & inspection: normal inspection of the chest <Tiff Poe PA - Last Filed: 06/21/22 18:36> Resp: Effort & Inspection: normal respiratory effort and able to speak in complete sentences <Tiff Poe PA - Last Filed: 06/21/22 18:36> GI: Inspection: Yes normal to inspection <Tiff Poe PA - Last Filed: 06/21/22 18:36> Neuro: General: patient oriented x3 and moves all extremities <Tiff Poe PA - Last Filed: 06/21/22 18:36> Cranial nerves: Yes Equal, round and reactive pupils present <Tiff Poe PA - Last Filed: 06/21/22 18:36> Cognition (Neuro): normal cognition <Tiff Poe PA - Last Filed: 06/21/22 18:36> Motor exam (neuro): 5/5 motor strength present throughout <Tiff Poe PA - Last Filed: 06/21/22 18:36> Sensory Exam: Normal double simultaneous stimulation for sensation <Tiff Poe PA - Last Filed: 06/21/22 18:36> Coordination: [id number] test normal <Tiff Poe PA - Last Filed: 06/21/22 18:36> Extrem: General: Yes normal to inspection, Yes full ROM and Yes capillary refill normal <Tiff Poe PA - Last Filed: 06/21/22 18:36> Psych: Appearance: grossly normal <Tiff Poe PA - Last Filed: 06/21/22 18:36> Mental Status: mental status grossly normal <Tiff Poe PA - Last Filed: 06/21/22 18:36> Affect: normal affect <Tiff Poe PA - Last Filed: 06/21/22 18:36> Attitude: cooperative <ZOHAIB Suero - Last Filed: 06/21/22 18:36> Thought process: Normal thought process present <ZOHAIB Suero - Last Filed: 06/21/22 18:36> Thought content: Normal thought content present <ZOHAIB Suero - Last Filed: 06/21/22 18:36> Insight: Good insight present (Psych) <ZOHAIB Suero - Last Filed: 06/21/22 18:36> Course Course Course Narrative: This is a rapid medical exam. Deferred additional HPI, ROS, PE to primary provider. 37 yo male with no known medical problems here with complaints of right eye swelling, itching, tearing, pain. On tuesday while working debris went into his eye. Will need eye exam. Tetanus is UTD +tachy in triage. Other VS stable <Adelina Swanson NP - Last Filed: 06/21/22 17:00> Medications Administered Discontinued Medications Generic Name Dose Route Start Last Admin Trade Name Freq PRN Reason Stop Dose Admin Fluorescein Sodium 1 strip 06/21/22 17:00 06/21/22 18:09 Fluorescein Sodium Strip EYE-RIGHT 06/21/22 17:01 1 strip ONCE ONE Administration Tetracaine HCl 1 drop 06/21/22 17:00 06/21/22 18:09 Tetracaine Hcl/Pf 0.5% Oph Verna 4 Ml Drops EYE-RIGHT 06/21/22 17:01 1 drop ONCE ONE Administration <Adelina Swanson NP - Last Filed: 06/21/22 17:00> Medications Administered Discontinued Medications Generic Name Dose Route Start Last Admin Trade Name Freq PRN Reason Stop Dose Admin Fluorescein Sodium 1 strip 06/21/22 17:00 06/21/22 18:09 Fluorescein Sodium Strip EYE-RIGHT 06/21/22 17:01 1 strip ONCE ONE Administration Tetracaine HCl 1 drop 06/21/22 17:00 06/21/22 18:09 Tetracaine Hcl/Pf 0.5% Oph Verna 4 Ml Drops EYE-RIGHT 06/21/22 17:01 1 drop ONCE ONE Administration <ZOHAIB Suero - Last Filed: 06/21/22 18:36> Medical Decision Making Medical Decision Making MDM Narrative: Patient is a 37 year old assigned male at with no reported medical history presenting to the emergency department today with right eye pain. Patient's physical exam showed a right corneal abrasion and minimal erythema with swelling to the right lower eye lid. Patient's eye pressures were bilaterally normal at 10 on the left and 12 on the right. I explained my physical exam findings to the patient. I answered all questions asked by the patient. I stressed the importance of the patient taking his medication as prescribed. I stressed the importance of the patient following up with his primary care provider and an fiscal specialist. I stressed the importance of the patient returning to the emergency department immediately if his symptoms were to worsen or if he were to develop any dizziness, shortness of breath, difficulty breathing, chest pain, blurry vision, loss of vision, nausea, vomiting, abdominal pain, fever, chills, back pain, or any other complaints. Patient verbalized agreement and understanding with this treatment plan and discharge. <ZOHAIB Suero - Last Filed: 06/21/22 18:36> Differential Diagnosis Differential Diagnoses: The differential diagnosis associated with the presentation includes <ZOHAIB Suero Last Filed: 06/21/22 18:36> right corneal abrasion, right preseptal cellulitis <ZOHAIB Suero Last Filed: 06/21/22 18:36> Discharge Plan Discharge Clinical Impression: Corneal abrasion, Periorbital cellulitis <Adelina Swanson NP - Last Filed: 06/21/22 17:00> Patient Disposition: Home, Self-Care <DILLON Liz Last Filed: 06/21/22 17:00> Instructions: Corneal Abrasion (DC), Periorbital Cellulitis in Adults (ED) <DILLON Liz Last Filed: 06/21/22 17:00> Additional Instructions: Apply warm compresses to the area. Follow up with your primary care provider and an fiscal specialist. Return to the emergency department immediately if your symptoms worsen or if you develop any dizziness, shortness of breath, difficulty breathing, chest pain, blurry vision, loss of vision, nausea, vomiting, abdominal pain, fever, chills, back pain, or any other complaints. <DILLON Liz Last Filed: 06/21/22 17:00> Prescriptions: New erythromycin 5 mg/gram (0.5 %) ointment 0.5 inch ophthalmic (eye) Q4H Qty: 3.5 0RF clindamycin HCl 300 mg capsule 300 mg PO TID 7 Days Qty: 21 0RF No Action erythromycin 5 mg/gram (0.5 %) ointment 0.5 inch ophthalmic (eye) BID 7 Days Qty: 3.5 0RF cephalexin 500 mg capsule 500 mg PO TID 7 Days Qty: 21 0RF amoxicillin 500 mg capsule 500 mg PO TID 10 Days Qty: 30 0RF cetirizine 10 mg capsule 10 mg PO DAILY PRN (Reason: cough) Qty: 10 0RF benzonatate [Tessalon Perles] 100 mg capsule 100 mg PO TID 5 Days Qty: 15 0RF azithromycin 250 mg tablet See Rx Instructions .ROUTE .COMPLEX Qty: 6 0RF Rx Instructions: take 500 mg today (day 1), then 250 mg for 4 days (days 2-5) amoxicillin-pot clavulanate [Augmentin] 875-125 mg tablet 1 tab PO Q12H 5 Days Qty: 10 0RF ibuprofen 800 mg tablet 800 mg PO Q8H PRN (Reason: pain) Qty: 14 0RF acetaminophen [Tylenol Extra Strength] 500 mg tablet 1,000 mg PO QID PRN (Reason: fever or pain) Qty: 14 0RF oxycodone 5 mg tablet 5 mg PO Q6H PRN (Reason: pain) Qty: 14 0RF sulfamethoxazole-trimethoprim [Bactrim DS] 800-160 mg tablet 1 tab PO Q12H Qty: 14 0RF amoxicillin-pot clavulanate 875-125 mg tablet 1 tab PO BID Qty: 14 0RF ibuprofen 600 mg tablet 600 mg PO Q8H PRN (Reason: pain) Qty: 20 0RF <Adelina Swanson NP - Last Filed: 06/21/22 17:00> Referrals: [facility] [place] Family Medicine [Provider Group] (Call to establish and follow up with a primary care provider. If you already have a primary care provider, please follow up with them.) [facility] [place] Primary [facility] [Provider Group] (Call to establish and follow up with a primary care provider. If you already have a primary care provider, please follow up with them.) [facility] [place] Primary [facility] [Provider Group] (Call to establish and follow up with a primary care provider. If you already have a primary care provider, please follow up with them.) [facility] [Physician] - (Call to establish and follow up with an manager of corporate communications (fiscal specialist). ) <Adelina Swanson NP - Last Filed: 06/21/22 17:00> Stand Alone Forms: Work/School Release <Adelina Swanson NP - Last Filed: 06/21/22 17:00> Print Language: Hungarian <Adelina Swanson NP - Last Filed: 06/21/22 17:00>
[2022-06-21 16:59] VITALS: BP 126/93; PULSE 124; RESP 18; TEMP 36.8; O2SAT 96; BMI 26.8
[2022-06-21] MEDS: Tetracaine HCl/PF 0.5% Oph Sol 4 ML DROPS 1 DROP EYE-RIGHT (18:09)
[2022-06-21] MEDS: Fluorescein Sodium STRIP 1 STRIP EYE-RIGHT (18:09)
== END 2022-06-21 18:36 | disposition home or self-care (01) ==
PROVIDERS: Emergency Provider Emergency Medicine
DX: S05.01XA Injury of conjunctiva and corneal abrasion without foreign body, right eye, initial encounter (principal); L03.213 Periorbital cellulitis; X58.XXXA Exposure to other specified factors, initial encounter; Y93.9 Activity, unspecified; Y92.9 Unspecified place or not applicable; Y99.9 Unspecified external cause status; F17.200 Nicotine dependence, unspecified, uncomplicated; Z71.6 Tobacco abuse counseling; Z79.899 Other long term (current) drug therapy
CPT/HCPCS: 99282; 99283

== ENCOUNTER 2022-08-23 15:40 | Emergency (ER) | payer BC, SELFPAY ==
--- NOTE | 2022-08-23 16:45 | ED.GENADULT ---
HPI - General Adult General Chief complaint: Animal Bite Stated complaint: bug bite on left baptism, pain Time Seen by Provider: 08/23/22 16:55 Source: patient and RN notes reviewed Mode of arrival: ambulatory Limitations: no limitations History of Present Illness HPI narrative: This is a [id number]-male, with no known medical history, presenting to the emergency department with complaints of left baptism ?bug bite since yesterday. Patient states that he noticed some swelling to the left side his face last night and woke up this morning and has noticed the area has increased in size. He reports that it feels like a bug bite but did not notice a bug on him. No drainage from the area. No fevers, chills. No other complaints or concerns at this time. MD complaint: Abscess Onset (ago): day(s) Related Data Previous Rx's Medication Instructions Recorded cephalexin 500 mg capsule 500 mg PO TID 7 days #21 caps 01/16/20 erythromycin 5 mg/gram (0.5 %) eye 0.5 inch ophthalmic (eye) BID 7 01/16/20 ointment days #3.5 grams amoxicillin 875 mg-potassium 1 tab PO Q12H 5 days #10 tabs 04/09/20 clavulanate 125 mg tablet (Augmentin) amoxicillin 500 mg capsule 500 mg PO TID 10 days #30 caps 08/21/20 benzonatate 100 mg capsule 100 mg PO TID 5 days #15 caps 08/29/20 (Tessalon Perles) cetirizine 10 mg capsule 10 mg PO DAILY PRN cough #10 caps 08/29/20 azithromycin 250 mg tablet See Rx Instructions PO .COMPLEX #6 09/01/20 tabs amoxicillin 875 mg-potassium 1 tab PO BID #14 tabs 07/11/21 clavulanate 125 mg tablet ibuprofen 600 mg tablet 600 mg PO Q8H PRN pain #20 tabs 07/11/21 sulfamethoxazole 800 1 tab PO Q12H #14 tabs 07/11/21 mg-trimethoprim 160 mg tablet (Bactrim DS) acetaminophen 500 mg tablet 1,000 mg PO QID PRN fever or pain 07/13/21 (Tylenol Extra Strength) #14 tabs ibuprofen 800 mg tablet 800 mg PO Q8H PRN pain #14 tabs 07/13/21 oxycodone 5 mg tablet 5 mg PO Q6H PRN pain #14 tabs 07/13/21 clindamycin HCl 300 mg capsule 300 mg PO TID 7 days #21 caps 06/21/22 erythromycin 5 mg/gram (0.5 %) eye 0.5 inch ophthalmic (eye) Q4H #3.5 06/21/22 ointment grams clindamycin phosphate 1 % topical 1 appl topical BID #30 grams 08/23/22 gel clindamycin HCl 300 mg capsule 300 mg PO TID 7 days #21 caps 08/25/22 Allergies Allergy/AdvReac Type Severity Reaction Status Date / Time mushroom Allergy Unknown SWELLING Verified 08/25/22 11:52 Review of Systems Review of Systems: Yes all other systems are reviewed and are negative PENDING SALE TO [facility] Past Medical History Medical History No active medical problems Social History Social History Alcohol intake: current Alcohol intake frequency: holidays/special occasions only Patient Tobacco Use Status: Current everyday Tobacco user Smoked in Last 30 Days: Yes Use of substances other than those prescribed or required for medical reasons: No Advance Directives: No Advance Directives Information Provided: Yes Physical Exam ED Vital Signs: Vital Signs - 24 hr 08/23/22 16:46 Temperature 98.4 F Pulse Rate 102 H Respiratory Rate 16 Blood Pressure 115/82 Pulse Oximetry 97 Oxygen Delivery Method Room Air BMI result Body Mass Index 26.6 Const Other: General: Awake, alert, and oriented X3. No acute distress. HEENT: Normal inspection CVS: Normal heart rate and rhythm. Pulses normal. Respiratory: No respiratory distress Skin: Left baptism 1 cm indurated papule noted. No fluctuance, drainage, or surrounding erythema or warmth. Extremities: Normal to inspection Neuro: Oriented X 3. No motor deficit. No sensory deficit. Medical Decision Making Medical Decision Making MDM Narrative: 37-year-old male presenting to the emergency department with complaints of left baptism ?papule. Patient afebrile, papule appears to be abscess versus cystic acne versus insect bite. Patient has no surrounding erythema or edema. Patient is afebrile, can be treated with topical clindamycin. Educated the importance of returning should any new or worsening symptoms occur. Patient understands and agrees with plan. Patient stable for discharge Differential Diagnosis Differential Diagnoses: The differential diagnosis associated with the presentation includes Abscess, cellulitis, cystic acne, cyst Discharge Plan Discharge Clinical Impression: Cystic acne, Abscess Patient Disposition: Home, Self-Care Instructions: Abscess (ED) Additional Instructions: Please use antibiotic ointment as directed. Complete the full course. Use for 14 days. Keep area clean and dry. Apply warm compresses to the area 4-5 times per day to help speed up healing process. Take ibuprofen or tylenol as needed for symptoms. If you develop and new or worsening symptoms, including but not limited to fevers, chills, worsening swelling, pain, please return for re-evaluation. Prescriptions: New clindamycin phosphate 1 % gel 1 appl topical BID Qty: 30 0RF No Action erythromycin 5 mg/gram (0.5 %) ointment 0.5 inch ophthalmic (eye) BID 7 Days Qty: 3.5 0RF cephalexin 500 mg capsule 500 mg PO TID 7 Days Qty: 21 0RF amoxicillin 500 mg capsule 500 mg PO TID 10 Days Qty: 30 0RF cetirizine 10 mg capsule 10 mg PO DAILY PRN (Reason: cough) Qty: 10 0RF benzonatate [Tessalon Perles] 100 mg capsule 100 mg PO TID 5 Days Qty: 15 0RF azithromycin 250 mg tablet See Rx Instructions .ROUTE .COMPLEX Qty: 6 0RF Rx Instructions: take 500 mg today (day 1), then 250 mg for 4 days (days 2-5) amoxicillin-pot clavulanate [Augmentin] 875-125 mg tablet 1 tab PO Q12H 5 Days Qty: 10 0RF ibuprofen 800 mg tablet 800 mg PO Q8H PRN (Reason: pain) Qty: 14 0RF acetaminophen [Tylenol Extra Strength] 500 mg tablet 1,000 mg PO QID PRN (Reason: fever or pain) Qty: 14 0RF oxycodone 5 mg tablet 5 mg PO Q6H PRN (Reason: pain) Qty: 14 0RF sulfamethoxazole-trimethoprim [Bactrim DS] 800-160 mg tablet 1 tab PO Q12H Qty: 14 0RF amoxicillin-pot clavulanate 875-125 mg tablet 1 tab PO BID Qty: 14 0RF ibuprofen 600 mg tablet 600 mg PO Q8H PRN (Reason: pain) Qty: 20 0RF clindamycin HCl 300 mg capsule 300 mg PO TID 7 Days Qty: 21 0RF erythromycin 5 mg/gram (0.5 %) ointment 0.5 inch ophthalmic (eye) Q4H Qty: 3.5 0RF clindamycin HCl 300 mg capsule 300 mg PO TID 7 Days Qty: 21 0RF Interventions: ED Discharge Assessment Last Done: 08/23/22 17:16 Discharge Date/Time: 08/23/22 17:16
[2022-08-23 16:46] VITALS: BP 115/82; PULSE 102; RESP 16; TEMP 36.9; O2SAT 97; BMI 26.6
== END 2022-08-23 17:16 | disposition home or self-care (01) ==
PROVIDERS: Emergency Provider Emergency Medicine
DX: L70.0 Acne vulgaris (principal); L02.01 Cutaneous abscess of face
CPT/HCPCS: 99282; 99283

== ENCOUNTER 2022-08-25 10:47 | Emergency (ER) | payer BC, SELFPAY ==
[2022-08-25 10:54] VITALS: BP 136/99; PULSE 102; RESP 16; TEMP 37.1; O2SAT 98; BMI 26.6
--- NOTE | 2022-08-25 11:33 | ED.GENADULT ---
HPI - General Adult General Chief complaint: Skin/Abscess/Foreign Body Stated complaint: ? Insect Bite L Eye Time Seen by Provider: 08/25/22 11:32 Source: patient Mode of arrival: ambulatory Limitations: no limitations History of Present Illness HPI narrative: Patient is a 37 year old assigned male at with no reported medical history of presenting to the emergency department today with a worsening left scientologist bug bite. Patient states that he was seen here 2 days ago for a bug bit to his left scientologist. Patient states that he was told then this was likely an abscess and was given topical antibiotic cream. Patient states that the swelling has now moved from that area to the left eye. Patient denies any dizziness, lightheadedness, abdominal pain, nausea, vomiting, fever, chills, blurry vision, double vision, loss of vision, chest pain, difficulty breathing, shortness of breath, back pain, night sweats, pain with urination, increased urinary frequency, increased urinary urgency, blood in his urine or stool, syncope or a near syncopal episode, recent trauma or falls, bowel incontinence, bladder incontinence, bowel retention, bladder retention, or any other complaints at this time. Onset (ago): day(s) Location: eyes (left) Severity: mild Severity scale (1-10): 2 Relieving factors: none Exacerbating factors: none Associated symptoms: denies other symptoms Treatments prior to arrival: other (topical antibiotic) Related Data Previous Rx's Medication Instructions Recorded cephalexin 500 mg capsule 500 mg PO TID 7 days #21 caps 01/16/20 erythromycin 5 mg/gram (0.5 %) eye 0.5 inch ophthalmic (eye) BID 7 01/16/20 ointment days #3.5 grams amoxicillin 875 mg-potassium 1 tab PO Q12H 5 days #10 tabs 04/09/20 clavulanate 125 mg tablet (Augmentin) amoxicillin 500 mg capsule 500 mg PO TID 10 days #30 caps 08/21/20 benzonatate 100 mg capsule 100 mg PO TID 5 days #15 caps 08/29/20 (Tessalon Perles) cetirizine 10 mg capsule 10 mg PO DAILY PRN cough #10 caps 08/29/20 azithromycin 250 mg tablet See Rx Instructions PO .COMPLEX #6 09/01/20 tabs amoxicillin 875 mg-potassium 1 tab PO BID #14 tabs 07/11/21 clavulanate 125 mg tablet ibuprofen 600 mg tablet 600 mg PO Q8H PRN pain #20 tabs 07/11/21 sulfamethoxazole 800 1 tab PO Q12H #14 tabs 07/11/21 mg-trimethoprim 160 mg tablet (Bactrim DS) acetaminophen 500 mg tablet 1,000 mg PO QID PRN fever or pain 07/13/21 (Tylenol Extra Strength) #14 tabs ibuprofen 800 mg tablet 800 mg PO Q8H PRN pain #14 tabs 07/13/21 oxycodone 5 mg tablet 5 mg PO Q6H PRN pain #14 tabs 07/13/21 clindamycin HCl 300 mg capsule 300 mg PO TID 7 days #21 caps 06/21/22 erythromycin 5 mg/gram (0.5 %) eye 0.5 inch ophthalmic (eye) Q4H #3.5 06/21/22 ointment grams clindamycin phosphate 1 % topical 1 appl topical BID #30 grams 08/23/22 gel clindamycin HCl 300 mg capsule 300 mg PO TID 7 days #21 caps 08/25/22 Allergies Allergy/AdvReac Type Severity Reaction Status Date / Time mushroom Allergy Unknown SWELLING Verified 08/25/22 11:52 Review of Systems Constitutional: Constitutional: Reports no additional constitutional complaints, Denies chills, Denies fever(s) and Denies night sweats Eyes: Eyes: Reports no additional eye complaints, Denies blurry vision, Denies change in vision, Denies diplopia, Denies eye discharge, Denies loss of vision and Denies eye pain ENT: Denies dizziness Comments: left eye lid swelling, bug bite to left scientologist Cardiovascular: Cardiovascular: Reports no additional cardiovascular complaints, Denies chest pain, Denies lightheadedness, Denies Loss of Consciousness and Denies dyspnea Respiratory: Respiratory: Reports no additional respiratory complaints and Denies dyspnea Gastrointestinal: Gastrointestinal: Reports no additional gastrointestinal complaints, Denies abdominal pain, Denies melena, Denies hematochezia, Denies change in bowel habits and Denies change in stool character Genitourinary: Genitourinary: Reports no additional male genitourinary complaints, Denies hematuria, Denies oliguria, Denies difficulty urinating, Denies dysuria, Denies urinary frequency, Denies urinary hesitancy, Denies urinary incontinence and Denies urinary urgency Musculoskeletal: Musculoskeletal: Reports no additional musculoskeletal complaints, Denies numbness and Denies tingling Neurologic: Denies dizziness, Denies loss of vision, Denies numbness and Denies tingling Psychiatric: Psychiatric: Reports no additional psychiatric complaints Endocrine: Endocrine: Reports no additional endocrine complaints Hematologic/Lymphatic: Hematologic/Lymphatic: Reports no additional hematologic/lymphatic complaints Allergic/Immunologic: Allergic/Immunologic: Reports no additional allergic/immunologic complaints PMFSH Past Medical History Attestation statement: The following information was validated with the patient. Source: old records reviewed and nursing notes reviewed Medical History No active medical problems Social History Social History Alcohol intake: current Alcohol intake frequency: holidays/special occasions only Patient Tobacco Use Status: Current everyday Tobacco user Smoked in Last 30 Days: Yes Use of substances other than those prescribed or required for medical reasons: No Advance Directives: No Advance Directives Information Provided: Yes Physical Exam ED Vital Signs: Vital Signs - 24 hr 08/25/22 10:54 Temperature 98.7 F Pulse Rate 102 H Respiratory Rate 16 Blood Pressure 136/99 H Pulse Oximetry 98 Oxygen Delivery Method Room Air BMI result Body Mass Index 26.6 Const General: cooperative, no acute distress, alert and awake Nutritional Appearance: well nourished Orientation/consciousness: patient oriented x3 Limitations: no limitations HENMT Other: small erythematous area to the left scientologist, consistent with a bug bite, no fluctuance, no warmth Head: Yes atraumatic Ears: hearing grossly normal bilaterally and external ears normal General nose exam: Normal external nose present, no nasal discharge noted and no epistaxis Face and sinus: Yes normal facial exam, No abrasion and No laceration Mouth: Normal oral and palatal mucosa present, no drooling and no muffled voice Eyes Eyelids: Yes other (left upper lid has minimal swelling, no erythema, no warmth) Conjunctivae: conjunctivae normal Pupils: Equal, round and reactive pupils present EOM: EOMs intact bilaterally Neck Neck: Yes normal visual inspection, Yes full ROM and Yes no lymphadenopathy Chest Chest palpation & inspection: normal inspection of the chest Resp Effort & Inspection: normal respiratory effort and able to speak in complete sentences GI Inspection: Yes normal to inspection Neuro General: patient oriented x3 and moves all extremities Cranial nerves: Yes Equal, round and reactive pupils present Cognition (Neuro): normal cognition Motor exam (neuro): 5/5 motor strength present throughout Sensory Exam: Normal double simultaneous stimulation for sensation Coordination: [id number] test normal Extrem General: Yes normal to inspection, Yes full ROM and Yes capillary refill normal Psych Appearance: grossly normal Mental Status: mental status grossly normal Affect: normal affect Attitude: cooperative Thought process: Normal thought process present Thought content: Normal thought content present Insight: Good insight present (Psych) Medical Decision Making Medical Decision Making MDM Narrative: Patient is a 37 year old assigned male at with no reported medical history presenting to the emergency department today with left eye lid swelling. Patient's physical exam was as noted in the physical exam portion of this chart. Patient's clinical presentation is consistent with a periorbital cellulitis. I explained my physical exam findings to the patient. I answered all questions asked by the patient. I stressed the importance of the patient taking his medication as prescribed. I stressed the importance of the patient following up with his primary care provider. I stressed the importance of the patient returning to the emergency department immediately if his symptoms were to worsen or if he were to develop any dizziness, shortness of breath, difficulty breathing, chest pain, blurry vision, loss of vision, nausea, vomiting, abdominal pain, fever, chills, back pain, or any other complaints. Patient verbalized agreement and understanding with this treatment plan and discharge. Differential Diagnosis Differential Diagnoses: The differential diagnosis associated with the presentation includes Periorbital cellulitis Bug bite Soft tissue swelling External Record Review External record reviewed: Other (reviewed patient's previous ED visit.) Prescription Management I considered prescription management with: Antibiotic (patient prescribed an oral antibiotic) Discharge Plan Discharge Clinical Impression: Periorbital cellulitis Patient Disposition: Home, Self-Care Instructions: Periorbital Cellulitis in Adults (ED) Additional Instructions: Sleep on an incline to help with swelling. Follow up with your primary care provider. Return to the emergency department immediately if your symptoms worsen or if you develop any dizziness, shortness of breath, difficulty breathing, chest pain, blurry vision, loss of vision, nausea, vomiting, abdominal pain, fever, chills, back pain, or any other complaints. Prescriptions: New clindamycin HCl 300 mg capsule 300 mg PO TID 7 Days Qty: 21 0RF No Action erythromycin 5 mg/gram (0.5 %) ointment 0.5 inch ophthalmic (eye) BID 7 Days Qty: 3.5 0RF cephalexin 500 mg capsule 500 mg PO TID 7 Days Qty: 21 0RF amoxicillin 500 mg capsule 500 mg PO TID 10 Days Qty: 30 0RF cetirizine 10 mg capsule 10 mg PO DAILY PRN (Reason: cough) Qty: 10 0RF benzonatate [Tessalon Perles] 100 mg capsule 100 mg PO TID 5 Days Qty: 15 0RF azithromycin 250 mg tablet See Rx Instructions .ROUTE .COMPLEX Qty: 6 0RF Rx Instructions: take 500 mg today (day 1), then 250 mg for 4 days (days 2-5) amoxicillin-pot clavulanate [Augmentin] 875-125 mg tablet 1 tab PO Q12H 5 Days Qty: 10 0RF ibuprofen 800 mg tablet 800 mg PO Q8H PRN (Reason: pain) Qty: 14 0RF acetaminophen [Tylenol Extra Strength] 500 mg tablet 1,000 mg PO QID PRN (Reason: fever or pain) Qty: 14 0RF oxycodone 5 mg tablet 5 mg PO Q6H PRN (Reason: pain) Qty: 14 0RF sulfamethoxazole-trimethoprim [Bactrim DS] 800-160 mg tablet 1 tab PO Q12H Qty: 14 0RF amoxicillin-pot clavulanate 875-125 mg tablet 1 tab PO BID Qty: 14 0RF ibuprofen 600 mg tablet 600 mg PO Q8H PRN (Reason: pain) Qty: 20 0RF erythromycin 5 mg/gram (0.5 %) ointment 0.5 inch ophthalmic (eye) Q4H Qty: 3.5 0RF clindamycin HCl 300 mg capsule 300 mg PO TID 7 Days Qty: 21 0RF clindamycin phosphate 1 % gel 1 appl topical BID Qty: 30 0RF Referrals: [facility] [facility] [Provider Group] (Call to establish and follow up with a primary care provider. If you already have a primary care provider, please follow up with them.) [facility] [place] [facility] [Provider Group] (Call to establish and follow up with a primary care provider. If you already have a primary care provider, please follow up with them.) [facility] [place] [facility] [Provider [facility]] (Call to establish and follow up with a primary care provider. If you already have a primary care provider, please follow up with them.) Stand Alone Forms: Work/School Release Interventions: ED Discharge Assessment Last Done: 08/25/22 11:58 Discharge Date/Time: 08/25/22 11:58 Print Language: Kiswahili
== END 2022-08-25 11:58 | disposition home or self-care (01) ==
LOC: HO.ED 11:50
PROVIDERS: Emergency Provider Emergency Medicine
DX: L03.213 Periorbital cellulitis (principal); S00.86XA Insect bite (nonvenomous) of other part of head, initial encounter; W57.XXXA Bitten or stung by nonvenomous insect and other nonvenomous arthropods, initial encounter; Z79.899 Other long term (current) drug therapy; Y93.9 Activity, unspecified; Y92.9 Unspecified place or not applicable; Y99.9 Unspecified external cause status
CPT/HCPCS: 99283

== ENCOUNTER 2022-12-13 10:29 | Emergency (ER) | payer BC, SELFPAY ==
[2022-12-13 11:04] VITALS: BP 133/97; PULSE 82; RESP 18; TEMP 36.6; O2SAT 99; BMI 26.6
--- NOTE | 2022-12-13 11:06 | ED.GENADULT ---
HPI - General Adult General Chief complaint: Back Pain/Injury Stated complaint: lower back pain/ L leg pressure Time Seen by Provider: 12/13/22 11:06 Source: patient, RN notes reviewed and old records reviewed Mode of arrival: ambulatory Limitations: no limitations History of Present Illness HPI narrative: 37-year-old presents for evaluation of left lower back pain. 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 Denies any numbness, tingling. Denies any falls or trauma Patient does admit to heavy lifting work frequently Related Data Previous Rx's Medication Instructions Recorded cephalexin 500 mg capsule 500 mg PO TID 7 days #21 caps 01/16/20 erythromycin 5 mg/gram (0.5 %) eye 0.5 inch ophthalmic (eye) BID 7 01/16/20 ointment days #3.5 grams amoxicillin 875 mg-potassium 1 tab PO Q12H 5 days #10 tabs 04/09/20 clavulanate 125 mg tablet (Augmentin) amoxicillin 500 mg capsule 500 mg PO TID 10 days #30 caps 08/21/20 benzonatate 100 mg capsule 100 mg PO TID 5 days #15 caps 08/29/20 (Tessalon Perles) cetirizine 10 mg capsule 10 mg PO DAILY PRN cough #10 caps 08/29/20 azithromycin 250 mg tablet See Rx Instructions PO .COMPLEX #6 09/01/20 tabs amoxicillin 875 mg-potassium 1 tab PO BID #14 tabs 07/11/21 clavulanate 125 mg tablet ibuprofen 600 mg tablet 600 mg PO Q8H PRN pain #20 tabs 07/11/21 sulfamethoxazole 800 1 tab PO Q12H #14 tabs 07/11/21 mg-trimethoprim 160 mg tablet (Bactrim DS) acetaminophen 500 mg tablet 1,000 mg (2 x 500 mg) PO QID PRN 07/13/21 (Tylenol Extra Strength) fever or pain #14 tabs ibuprofen 800 mg tablet 800 mg PO Q8H PRN pain #14 tabs 07/13/21 oxycodone 5 mg tablet 5 mg PO Q6H PRN pain #14 tabs 07/13/21 clindamycin HCl 300 mg capsule 300 mg PO TID 7 days #21 caps 06/21/22 erythromycin 5 mg/gram (0.5 %) eye 0.5 inch ophthalmic (eye) Q4H #3.5 06/21/22 ointment grams clindamycin phosphate 1 % topical 1 appl topical BID #30 grams 08/23/22 gel clindamycin HCl 300 mg capsule 300 mg PO TID 7 days #21 caps 08/25/22 dexamethasone 4 mg tablet 4 mg PO BID #6 tabs 12/13/22 ibuprofen 600 mg tablet 600 mg PO TID PRN pain #20 tabs 12/13/22 methocarbamol 500 mg tablet 500 mg PO TID #15 tabs 12/13/22 Allergies Allergy/AdvReac Type Severity Reaction Status Date / Time mushroom Allergy Unknown SWELLING Verified 08/25/22 11:52 Review of Systems Constitutional: Constitutional: Denies body ache(s), Denies fever(s) and Denies weakness Cardiovascular: Cardiovascular: Denies chest pain and Denies dyspnea Respiratory: Respiratory: Denies dyspnea Gastrointestinal: Gastrointestinal: Denies abdominal pain, Denies nausea and Denies vomiting Musculoskeletal: Musculoskeletal: Reports back pain and Denies tingling Integumentary/Breasts: Skin/Breast: Denies rash Neurologic: Reports radicular pain, Denies tingling, Denies paresthesias and Denies weakness PMFSH Past Medical History Medical History No active medical problems Social History Social History Alcohol intake: current Alcohol intake frequency: holidays/special occasions only Patient Tobacco Use Status: Current everyday Tobacco user Advance Directives: No Advance Directives Information Provided: No Physical Exam ED Vital Signs: Vital Signs - 24 hr 12/13/22 11:04 Temperature 97.8 F Pulse Rate 82 Respiratory Rate 18 Blood Pressure 133/97 H Pulse Oximetry 99 Oxygen Delivery Method Room Air BMI result Body Mass Index 26.6 Const General: healthy appearing, comfortable, no acute distress, alert and awake Nutritional Appearance: well nourished Orientation/consciousness: patient oriented x3 HENMT Head: Yes normocephalic and Yes atraumatic Eyes Eyelids: Yes eyelids normal Conjunctivae: conjunctivae normal Sclerae: sclerae normal Corneas: corneas normal Pupils: Equal, round and reactive pupils present EOM: EOMs intact bilaterally Neck Neck: Yes full ROM Resp Effort & Inspection: normal respiratory effort, able to speak in complete sentences and not labored Back/Spine/Pelvis Other: Left lumbar sacral paraspinous muscle tenderness. No vertebral tenderness. No step-offs or deformities. Skin General skin exam: elasticity normal Neuro General: patient oriented x3 Cranial nerves: Yes Equal, round and reactive pupils present and Yes Bilaterally intact EOM present Cognition (Neuro): normal cognition Motor exam (neuro): 5/5 motor strength present throughout Extrem Other: Moving all extremities well without any obvious deformities Medical Decision Making Medical Decision Making MDM Narrative: 37-year-old male presents for evaluation of left lumbar paraspinal some staff. No would flag symptoms for cauda equina syndrome. There was no trauma. Discussed possible x-ray imaging of the lumbar spine but ultimately deferred at this time. Will treat the patient symptomatically Differential Diagnosis Differential Diagnoses: The differential diagnosis associated with the presentation includes Lower back pain Sciatica Lumbar radiculopathy Muscle strain Contusion Spondylosis Tests considered The following testing was considered but not selected: Considered lumbar radiograph Prescription Management I considered prescription management with: Pain Medication Discharge Plan Discharge Clinical Impression: Lumbar radiculopathy Patient Disposition: Home, Self-Care Instructions: Acute Low Back Pain (ED) Additional Instructions: Your symptoms are consistent a pinched nerve called sciatica Use ibuprofen as needed for pain. Use methocarbamol muscle spasms This may make you sleepy, did drink alcohol or drive after taking Take dexamethasone twice daily for 3 days Avoid heavy lifting or strenuous activity for next 2 days You may also use compresses Follow-up with your primary doctor Prescriptions: New dexamethasone 4 mg tablet 4 mg PO BID Qty: 6 0RF methocarbamol 500 mg tablet 500 mg PO TID Qty: 15 0RF ibuprofen 600 mg tablet 600 mg PO TID PRN (Reason: pain) Qty: 20 0RF No Action erythromycin 5 mg/gram (0.5 %) ointment 0.5 inch ophthalmic (eye) BID 7 Days Qty: 3.5 0RF cephalexin 500 mg capsule 500 mg PO TID 7 Days Qty: 21 0RF amoxicillin 500 mg capsule 500 mg PO TID 10 Days Qty: 30 0RF cetirizine 10 mg capsule 10 mg PO DAILY PRN (Reason: cough) Qty: 10 0RF benzonatate [Tessalon Perles] 100 mg capsule 100 mg PO TID 5 Days Qty: 15 0RF azithromycin 250 mg tablet See Rx Instructions .ROUTE .COMPLEX Qty: 6 0RF Rx Instructions: take 500 mg today (day 1), then 250 mg for 4 days (days 2-5) amoxicillin-pot clavulanate [Augmentin] 875-125 mg tablet 1 tab PO Q12H 5 Days Qty: 10 0RF ibuprofen 800 mg tablet 800 mg PO Q8H PRN (Reason: pain) Qty: 14 0RF acetaminophen [Tylenol Extra Strength] 500 mg tablet 1,000 mg PO QID PRN (Reason: fever or pain) Qty: 14 0RF oxycodone 5 mg tablet 5 mg PO Q6H PRN (Reason: pain) Qty: 14 0RF sulfamethoxazole-trimethoprim [Bactrim DS] 800-160 mg tablet 1 tab PO Q12H Qty: 14 0RF amoxicillin-pot clavulanate 875-125 mg tablet 1 tab PO BID Qty: 14 0RF ibuprofen 600 mg tablet 600 mg PO Q8H PRN (Reason: pain) Qty: 20 0RF clindamycin HCl 300 mg capsule 300 mg PO TID 7 Days Qty: 21 0RF erythromycin 5 mg/gram (0.5 %) ointment 0.5 inch ophthalmic (eye) Q4H Qty: 3.5 0RF clindamycin HCl 300 mg capsule 300 mg PO TID 7 Days Qty: 21 0RF clindamycin phosphate 1 % gel 1 appl topical BID Qty: 30 0RF Stand Alone Forms: Work/School Release
== END 2022-12-13 11:12 | disposition home or self-care (01) ==
PROVIDERS: Emergency Provider Emergency Medicine
DX: M54.16 Radiculopathy, lumbar region (principal); Z79.899 Other long term (current) drug therapy
CPT/HCPCS: 99282

== ENCOUNTER 2022-12-15 11:26 | Emergency (ER) | payer BC, SELFPAY ==
[2022-12-15 12:04] VITALS: BP 124/72; PULSE 113; RESP 18; TEMP 36.3; O2SAT 98; BMI 26.6
--- NOTE | 2022-12-15 12:05 | ED.GENADULT ---
HPI - General Adult General Stated complaint: Medical clearance for work-seen tuesday here Source: patient and RN notes reviewed Mode of arrival: ambulatory Limitations: no limitations History of Present Illness HPI narrative: This is a 37-year-old male presenting to the emergency department for medical clearance. Patient was seen here 3 days ago due to back pain. He states that his symptoms have drastically improved with medications he was given 3 days ago. He was diagnosed with lumbar radiculopathy. He has no back pain or any numbness and tingling into his legs. No saddle anesthesia, no urinary symptoms. No urinary bowel incontinence. Denies fevers, chills, abdominal pain, nausea, vomiting or diarrhea. He is feeling well and wishes to return back to work. No other complaints or concerns at this time. MD complaint: medical clearance Onset (ago): day(s) Radiation: non-radiation Relieving factors: none Exacerbating factors: none Associated symptoms: denies other symptoms Treatments prior to arrival: none Related Data Previous Rx's Medication Instructions Recorded cephalexin 500 mg capsule 500 mg PO TID 7 days #21 caps 01/16/20 erythromycin 5 mg/gram (0.5 %) eye 0.5 inch ophthalmic (eye) BID 7 01/16/20 ointment days #3.5 grams amoxicillin 875 mg-potassium 1 tab PO Q12H 5 days #10 tabs 04/09/20 clavulanate 125 mg tablet (Augmentin) amoxicillin 500 mg capsule 500 mg PO TID 10 days #30 caps 08/21/20 benzonatate 100 mg capsule 100 mg PO TID 5 days #15 caps 08/29/20 (Tessalon Perles) cetirizine 10 mg capsule 10 mg PO DAILY PRN cough #10 caps 08/29/20 azithromycin 250 mg tablet See Rx Instructions PO .COMPLEX #6 09/01/20 tabs amoxicillin 875 mg-potassium 1 tab PO BID #14 tabs 07/11/21 clavulanate 125 mg tablet ibuprofen 600 mg tablet 600 mg PO Q8H PRN pain #20 tabs 07/11/21 sulfamethoxazole 800 1 tab PO Q12H #14 tabs 07/11/21 mg-trimethoprim 160 mg tablet (Bactrim DS) acetaminophen 500 mg tablet 1,000 mg (2 x 500 mg) PO QID PRN 06/06/22 (Tylenol Extra Strength) fever or pain #14 tabs ibuprofen 800 mg tablet 800 mg PO Q8H PRN pain #14 tabs 07/13/21 oxycodone 5 mg tablet 5 mg PO Q6H PRN pain #14 tabs 07/13/21 clindamycin HCl 300 mg capsule 300 mg PO TID 7 days #21 caps 06/21/22 erythromycin 5 mg/gram (0.5 %) eye 0.5 inch ophthalmic (eye) Q4H #3.5 06/21/22 ointment grams clindamycin phosphate 1 % topical 1 appl topical BID #30 grams 08/23/22 gel clindamycin HCl 300 mg capsule 300 mg PO TID 7 days #21 caps 08/25/22 dexamethasone 4 mg tablet 4 mg PO BID #6 tabs 12/13/22 ibuprofen 600 mg tablet 600 mg PO TID PRN pain #20 tabs 12/13/22 methocarbamol 500 mg tablet 500 mg PO TID #15 tabs 12/13/22 Allergies Allergy/AdvReac Type Severity Reaction Status Date / Time mushroom Allergy Unknown SWELLING Verified 08/25/22 11:52 Review of Systems Review of Systems: Yes all other systems are reviewed and are negative [facility] Past Medical History Attestation statement: The following information was validated with the patient. Medical History No active medical problems Social History Social History Alcohol intake: current Alcohol intake frequency: holidays/special occasions only Patient Tobacco Use Status: Current everyday Tobacco user Physical Exam ED Const Other: General: Awake, alert, and oriented X3. No acute distress. HEENT: Normal inspection CVS: Normal heart rate and rhythm. Pulses normal. Respiratory: No respiratory distress Skin: Warm, dry, no rashes noted to exposed skin. Normal skin color. Normal skin turgor. Extremities: Normal to inspection Neuro: Oriented X 3. No motor deficit. No sensory deficit. Back: Back is nontender, patient is ambulatory, patellar reflexes 2+. Distal sensation circulation intact. Full flexion and extension of the back, able to twist torso without difficulty. Able to touch toes without any pain Medical Decision Making Medical Decision Making MDM Narrative: 37-year-old male presenting to the emergency department for medical evaluation. On arrival, vital signs within normal limits. Patient is mildly tachycardic he states that he did drink drink prior to his. He has no chest pain, shortness of breath, dizziness, visual changes. He is anxious being here. Patient's back is nontender normal examination, red flag back symptoms. Patient given medical clearance in the emergency room. Discharged with return precautions. Patient understands and agrees with plan. Patient stable for discharge. Differential Diagnosis Differential Diagnoses: The differential diagnosis associated with the presentation includes Lumbar radiculopathy, sciatica, low back pain, muscle strain, medical clearance Discharge Plan Discharge Clinical Impression: Back pain Qualifiers: Back pain location: low back pain Patient Disposition: Home, Self-Care Instructions: Back Pain (ED) Additional Instructions: Your seen in the emergency department as she wished to return to work. Your symptoms have improved. Gentle stretching acute her ice and massage can help. Always lift with your legs, never lift with your back. You may return to work. See attached work note. If any new or worsening symptoms occur including but not limited to worsening back pain, please return for re-evaluation. Prescriptions: No Action erythromycin 5 mg/gram (0.5 %) ointment 0.5 inch ophthalmic (eye) BID 7 Days Qty: 3.5 0RF cephalexin 500 mg capsule 500 mg PO TID 7 Days Qty: 21 0RF amoxicillin 500 mg capsule 500 mg PO TID 10 Days Qty: 30 0RF cetirizine 10 mg capsule 10 mg PO DAILY PRN (Reason: cough) Qty: 10 0RF benzonatate [Tessalon Perles] 100 mg capsule 100 mg PO TID 5 Days Qty: 15 0RF azithromycin 250 mg tablet See Rx Instructions .ROUTE .COMPLEX Qty: 6 0RF Rx Instructions: take 500 mg today (day 1), then 250 mg for 4 days (days 2-5) amoxicillin-pot clavulanate [Augmentin] 875-125 mg tablet 1 tab PO Q12H 5 Days Qty: 10 0RF ibuprofen 800 mg tablet 800 mg PO Q8H PRN (Reason: pain) Qty: 14 0RF acetaminophen [Tylenol Extra Strength] 500 mg tablet 1,000 mg PO QID PRN (Reason: fever or pain) Qty: 14 0RF oxycodone 5 mg tablet 5 mg PO Q6H PRN (Reason: pain) Qty: 14 0RF sulfamethoxazole-trimethoprim [Bactrim DS] 800-160 mg tablet 1 tab PO Q12H Qty: 14 0RF amoxicillin-pot clavulanate 875-125 mg tablet 1 tab PO BID Qty: 14 0RF ibuprofen 600 mg tablet 600 mg PO Q8H PRN (Reason: pain) Qty: 20 0RF clindamycin HCl 300 mg capsule 300 mg PO TID 7 Days Qty: 21 0RF dexamethasone 4 mg tablet 4 mg PO BID Qty: 6 0RF methocarbamol 500 mg tablet 500 mg PO TID Qty: 15 0RF ibuprofen 600 mg tablet 600 mg PO TID PRN (Reason: pain) Qty: 20 0RF erythromycin 5 mg/gram (0.5 %) ointment 0.5 inch ophthalmic (eye) Q4H Qty: 3.5 0RF clindamycin HCl 300 mg capsule 300 mg PO TID 7 Days Qty: 21 0RF clindamycin phosphate 1 % gel 1 appl topical BID Qty: 30 0RF Stand Alone Forms: Work/School Release
== END 2022-12-15 12:26 | disposition home or self-care (01) ==
PROVIDERS: Emergency Provider Student in an Organized Health Care Education/Training Program
DX: M54.50 Low back pain, unspecified (principal); Z79.899 Other long term (current) drug therapy
CPT/HCPCS: 99282

== ENCOUNTER 2024-02-18 13:59 | Emergency (ER) | payer BC, SELFPAY ==
--- NOTE | ~2024-02-18 | XR_ITS ---
CLINICAL HISTORY: COUGH X 1 WEEK 2 view chest x-ray Comparison: CR - XR CHEST 2V - 08/21/20 12:11 EDT Findings: The lungs are clear. Normal size heart. No acute fracture. IMPRESSION: 1. No acute findings. This document has been electronically signed by: Malissa Rockwell MD on 02/18/2024 15:08:51
[2024-02-18 14:01] VITALS: BP 138/86; PULSE 100; RESP 19; TEMP 36.6; O2SAT 96; BMI 25.8
--- NOTE | 2024-02-18 14:05 | ED_ITS ---
HPI - General Adult General Chief complaint: Ear Problems Stated complaint: cough, L ear pain Time Seen by Provider: 02/18/24 16:11 Source: patient and RN notes reviewed Mode of arrival: ambulatory Limitations: no limitations History of Present Illness ED Provider: Lilliam Acosta PA-C HPI narrative: This is a 38-year-old male who presents emergency department with complaints of cough, and left ear pain. Patient states that his symptoms started off 1 week ago, states that his cough was frequent, and dry in nature. He states that over the last 3-4 days he has developed left ear pain. No drainage. Denies any known fevers or chills. No chest pain or shortness of breath, abdominal pain, nausea, vomiting or diarrhea. He reports that his daughter is sick with similar symptoms at home, and tested positive for RSV today. No other complaints or concerns at this time. MD complaint: Cough, left ear pain Onset (ago): day(s) Relieving factors: none Exacerbating factors: none Associated symptoms: cough Treatments prior to arrival: none Related Data Previous Rx's ?Medication ?Instructions ?Recorded cephalexin 500 mg capsule 500 mg PO TID 7 days #21 caps 01/16/20 erythromycin 5 mg/gram (0.5 %) eye 0.5 inch ophthalmic (eye) BID 7 01/16/20 ointment days #3.5 grams amoxicillin 875 mg-potassium 1 tab PO Q12H 5 days #10 tabs 04/09/20 clavulanate 125 mg tablet (Augmentin) amoxicillin 500 mg capsule 500 mg PO TID 10 days #30 caps 08/21/20 benzonatate 100 mg capsule 100 mg PO TID 5 days #15 caps 08/29/20 (Tessalon Perles) cetirizine 10 mg capsule 10 mg PO DAILY PRN cough #10 caps 08/29/20 azithromycin 250 mg tablet See Rx Instructions PO .COMPLEX #6 09/01/20 tabs amoxicillin 875 mg-potassium 1 tab PO BID #14 tabs 07/11/21 clavulanate 125 mg tablet ibuprofen 600 mg tablet 600 mg PO Q8H PRN pain #20 tabs 07/11/21 sulfamethoxazole 800 1 tab PO Q12H #14 tabs 07/11/21 mg-trimethoprim 160 mg tablet (Bactrim DS) acetaminophen 500 mg tablet 1,000 mg (2 x 500 mg) PO QID PRN 07/13/21 (Tylenol Extra Strength) fever or pain #14 tabs ibuprofen 800 mg tablet 800 mg PO Q8H PRN pain #14 tabs 07/13/21 oxycodone 5 mg tablet 5 mg PO Q6H PRN pain #14 tabs 07/13/21 clindamycin HCl 300 mg capsule 300 mg PO TID 7 days #21 caps 06/21/22 erythromycin 5 mg/gram (0.5 %) eye 0.5 inch ophthalmic (eye) Q4H #3.5 06/21/22 ointment grams clindamycin phosphate 1 % topical 1 appl topical BID #30 grams 08/23/22 gel clindamycin HCl 300 mg capsule 300 mg PO TID 7 days #21 caps 08/25/22 dexamethasone 4 mg tablet 4 mg PO BID #6 tabs 12/13/22 ibuprofen 600 mg tablet 600 mg PO TID PRN pain #20 tabs 12/13/22 methocarbamol 500 mg tablet 500 mg PO TID #15 tabs 12/13/22 amoxicillin 875 mg tablet 875 mg PO BID 7 days #14 tabs 02/18/24 Allergies Allergy/AdvReac Type Severity Reaction Status Date / Time mushroom Allergy Unknown SWELLING Verified 02/18/24 14:02 Review of Systems Review of Systems: Yes all other systems are reviewed and are negative Constitutional: Constitutional: Reports as per [facility] Past Medical History Medical History No active medical problems Social History Social History Alcohol intake: current Alcohol intake frequency: holidays/special occasions only Patient Tobacco Use Status: Current everyday Tobacco user Advance Directives: No Advance Directives Information Provided: No Do you have a plan to hurt others: No Plan Physical Exam ED Vital Signs: Vital Signs - 24 hr 02/18/24 14:01 02/18/24 16:25 02/18/24 18:02 Temperature 98 F 98.3 F 98.3 F Pulse Rate 100 90 90 Respiratory Rate 19 17 17 Blood Pressure 138/86 131/90 H 131/90 H Pulse Oximetry 96 95 95 Oxygen Delivery Method Room Air Room Air Room Air BMI result Body Mass Index 25.8 Const General: cooperative, comfortable and no acute distress Orientation/consciousness: patient oriented x3 Limitations: no limitations HENMT Other: Left TM, at the 9 to 11 o'clock position, there is erythema, and bulging to the TM. No canal erythema or edema. No drainage. TM is intact. No perforation. No mastoid TTP Right TM unremarkable. Head: Yes normal to inspection, Yes normocephalic and Yes atraumatic Ears: hearing grossly normal bilaterally General nose exam: Normal external nose present Face and sinus: Yes normal facial exam Mouth: Normal oral and palatal mucosa present, oropharynx normal and moist mucous membranes Throat: Yes posterior oropharynx normal Eyes General: appearance normal, both eyes and all related structures Eyelids: Yes eyelids normal Conjunctivae: conjunctivae normal Sclerae: sclerae normal Pupils: Equal, round and reactive pupils present EOM: EOMs intact bilaterally Neck Neck: Yes normal visual inspection, Yes full ROM and Yes no lymphadenopathy Lymphatic: no lymphadenopathy noted Chest Chest palpation & inspection: normal inspection of the chest Resp Effort & Inspection: normal respiratory effort and able to speak in complete sentences Auscultation: clear to auscultation bilaterally, no crackles, no rales, no rhonchi and no wheezes Cardio Rate: regular rate Rhythm: regular rhythm Heart sounds: S1 normal heart sound present and S2 normal heart sound present GI Inspection: Yes normal to inspection Skin General skin exam: no rashes or lesions noted Trauma: no lacerations or abrasions Wounds: no wounds Neuro General: patient oriented x3 and moves all extremities Cranial nerves: Yes Equal, round and reactive pupils present Extrem General: Yes normal to inspection Right upper extremity: normal to inspection Left upper extremity: normal to inspection Right lower extremity: normal to inspection Left lower extremity: normal to inspection Course Course Course Narrative: This is a Rapid Medical Examination (RME) performed by Stef Nolasco PA-C in triage. Full HPI, ROS, assessment and treatment plan per primary provider in the Main ED. 38 yo male here for eval of cough x1 week w/ associated left ear pain. no drainage or hearing changes. no known sick contacts. + left EAC WNL. Left TM erythematous. intact. Slightly tender to palpation over mastoid region without fluctuance. not boggy. no protrusion of the auricle. Plan: viral swabs, cxr Medical Decision Making Medical Decision Making MDM Narrative: 38 y/o M here with cough and left ear pain. On arrival, VSS. Lungs CTAB. Left ear with erythematous TM, consistent with OM. Will tx with abx. Also tested positive for RSV. He has no chest pain or SOB. His vitals are WNL. Discussed return precautions, stable for d.c, Differential Diagnosis Differential Diagnoses: The differential diagnosis associated with the presentation includes RSV, COVID, pneumonia, OM/OE Lab Data MDM Lab Attestation statement: I reviewed the patient's lab results. +RSV Labs: Lab Results 02/18/24 Range/Units 14:24 Influenza Type A (PCR) NEGATIVE (Negative) Influenza Type B (PCR) NEGATIVE (Negative) RSV RNA Qual (PCR) POSITIVE A (Negative) SARS-CoV-2 RNA (RT-PCR) NEGATIVE (Negative) Radiology Impression Discussion of test interpretation with radiology: I have reviewed the radiologist's reading. Radiologist Impression: [place] [id number] XRay Report Signed Patient: Albino Masters MR#: [id number] : 1985 Acct:[id number] Age/Sex: 38 / M ADM Date: 02/18/24 Loc: .ED Attending Dr: Ordering Physician: Brittany Nolasco Date of Service: 02/18/24 Procedure(s): XR chest 2V Accession Number(s): [id number] cc: Physician,None ; Brittany Nolasco~ CLINICAL HISTORY: COUGH X 1 WEEK 2 view chest x-ray Comparison: CR - XR CHEST 2V - 08/21/20 12:11 EDT Findings: The lungs are clear. Normal size heart. No acute fracture. IMPRESSION: 1. No acute findings. This document has been electronically signed by: Malissa Rockwell MD on 02/18/2024 15:08:51 Dictated By: Malissa Rockwell MD Discharge Plan Discharge Clinical Impression: Otitis media, Respiratory syncytial virus (RSV) Patient Disposition: Home, Self-Care Instructions: Respiratory Syncytial Virus (ED), Ear Infection (ED) Additional Instructions: You were seen in the emergency department today and tested positive for RSV. Your left ear also appears to be infected. Please take prescribed antibiotic as directed, finish the entire course even if your symptoms improve. Drink plenty of fluids get plenty of rest. Alternate between ibuprofen and or Tylenol as needed for pain. If any new or worsening symptoms occur including but not limited to worsening pain, fevers not responding to Tylenol or Motrin, severe chest pain or shortness of breath, please seek emergent care. Prescriptions: New amoxicillin 875 mg tablet 875 mg PO BID 7 Days Qty: 14 0RF No Action erythromycin 5 mg/gram (0.5 %) ointment 0.5 inch ophthalmic (eye) BID 7 Days Qty: 3.5 0RF cephalexin 500 mg capsule 500 mg PO TID 7 Days Qty: 21 0RF amoxicillin 500 mg capsule 500 mg PO TID 10 Days Qty: 30 0RF cetirizine 10 mg capsule 10 mg PO DAILY PRN (Reason: cough) Qty: 10 0RF benzonatate [Tessalon Perles] 100 mg capsule 100 mg PO TID 5 Days Qty: 15 0RF azithromycin 250 mg tablet See Rx Instructions .ROUTE .COMPLEX Qty: 6 0RF Rx Instructions: take 500 mg today (day 1), then 250 mg for 4 days (days 2-5) amoxicillin-pot clavulanate [Augmentin] 875-125 mg tablet 1 tab PO Q12H 5 Days Qty: 10 0RF ibuprofen 800 mg tablet 800 mg PO Q8H PRN (Reason: pain) Qty: 14 0RF acetaminophen [Tylenol Extra Strength] 500 mg tablet 1,000 mg PO QID PRN (Reason: fever or pain) Qty: 14 0RF oxycodone 5 mg tablet 5 mg PO Q6H PRN (Reason: pain) Qty: 14 0RF sulfamethoxazole-trimethoprim [Bactrim DS] 800-160 mg tablet 1 tab PO Q12H Qty: 14 0RF amoxicillin-pot clavulanate 875-125 mg tablet 1 tab PO BID Qty: 14 0RF ibuprofen 600 mg tablet 600 mg PO Q8H PRN (Reason: pain) Qty: 20 0RF clindamycin HCl 300 mg capsule 300 mg PO TID 7 Days Qty: 21 0RF dexamethasone 4 mg tablet 4 mg PO BID Qty: 6 0RF methocarbamol 500 mg tablet 500 mg PO TID Qty: 15 0RF ibuprofen 600 mg tablet 600 mg PO TID PRN (Reason: pain) Qty: 20 0RF erythromycin 5 mg/gram (0.5 %) ointment 0.5 inch ophthalmic (eye) Q4H Qty: 3.5 0RF clindamycin HCl 300 mg capsule 300 mg PO TID 7 Days Qty: 21 0RF clindamycin phosphate 1 % gel 1 appl topical BID Qty: 30 0RF Stand Alone Forms: Work/School Release Interventions: ED Discharge Assessment Last Done: 02/18/24 18:02 Discharge Date/Time: 02/18/24 18:04 Print Language: Tristanian
[2024-02-18 15:16] LABS: Influenza A PCR NEGATIVE (Negative); Influenza B PCR NEGATIVE (Negative); Resp Syncy Virus RNA Qual PCR POSITIVE (Negative); SARS COV2 PCR INHOUSE NEGATIVE (Negative)
[2024-02-18 16:25] VITALS: BP 131/90; PULSE 90; RESP 17; TEMP 36.8; O2SAT 95
[2024-02-18 18:02] VITALS: BP 131/90; PULSE 90; RESP 17; TEMP 36.8; O2SAT 95
== END 2024-02-18 18:04 | disposition home or self-care (01) ==
PROVIDERS: Physician Assistant Medical; Emergency Provider Emergency Medicine
DX: H66.92 Otitis media, unspecified, left ear (principal); B97.4 Respiratory syncytial virus as the cause of diseases classified elsewhere; H92.02 Otalgia, left ear; R05.9 Cough, unspecified; F17.200 Nicotine dependence, unspecified, uncomplicated; Z03.818 Encounter for observation for suspected exposure to other biological agents ruled out
CPT/HCPCS: 0241U; 71046; 99283

== ENCOUNTER → 2024-02-18 14:04 | Outpatient (BNV) | payer BC, SELFPAY | PROVIDERS: Visit Provider Radiology Diagnostic Radiology | DX: R05.9 Cough, unspecified (principal) | CPT/HCPCS: 71046 ==

== ENCOUNTER 2024-03-13 10:07 | Emergency (ER) | payer BC, SELFPAY ==
--- NOTE | 2024-03-13 12:35 | PC.NURSE ---
NA at 12:34pm.
== END 2024-03-13 15:37 | disposition left against medical advice (07) ==
PROVIDERS: Emergency Provider Emergency Medicine
DX: Z53.21 Procedure and treatment not carried out due to patient leaving prior to being seen by health care provider (principal); H92.02 Otalgia, left ear; R68.84 Jaw pain

== ENCOUNTER 2024-03-14 09:57 | Emergency (ER) | payer BC, SELFPAY ==
[2024-03-14 10:05] VITALS: BP 143/91; PULSE 109; RESP 20; TEMP 37.3; O2SAT 98; BMI 27.0
== END 2024-03-14 17:30 | disposition left against medical advice (07) ==
PROVIDERS: Emergency Provider Emergency Medicine
DX: H92.02 Otalgia, left ear (principal); Z53.21 Procedure and treatment not carried out due to patient leaving prior to being seen by health care provider
CPT/HCPCS: 99281